=== PATIENT | male | born 1945 | race Caucasian/White ===

== ENCOUNTER 2019-07-14 23:04 | Inpatient (IN) | payer OTHER ==
[2019-07-15] MEDS ORDERED: SODIUM CHLORIDE IV ONE (00:19)
--- NOTE | 2019-07-15 00:21 | PDOC ---
History of Present Illness - General Chief Complaint: Blood Pressure Problem Stated Complaint: HYPOTENSION Time Seen by Provider: 07/15/19 00:15 - History of Present Illness Initial Comments: The pt is a 74M w/ a history of HTN, T2DM, seizures, bipolar disorder who presents from [facility] for evaluation of hypotension and WBC of 17.1. Pt is unable to give a history at this time. 07/15/19 01:06 Past History - Past Medical History Allergies/Adverse Reactions: Allergies Allergy/AdvReac Type Severity Reaction Status Date / Time fluphenazine enanthate Allergy Verified 07/14/19 23:58 [From Prolixin] fluphenazine HCl Allergy Verified 07/14/19 23:58 [From Prolixin] haloperidol [From Haldol] Allergy Verified 07/14/19 23:58 haloperidol lactate Allergy Verified 07/14/19 23:58 [From Haldol] Home Medications: Ambulatory Orders Albuterol Sulfate Inhaler - [Ventolin HFA Inhaler -] 2 inh PO Q4H PRN #1 inh Azithromycin [Zithromax Z-JOSIAH (5 DAYS) -] 250 mg PO ASDIR #6 tablet NS 09/05/14 Budesonide/Formeterol Fumarate [SYMBICORT 160/4.5mcg -] 1 inh PO BID 09/05/14 Chlorpromazine [Thorazine -] 50 mg PO BID 09/05/14 Docusate Sodium [Colace -] 100 mg PO BID 09/05/14 LamoTRIgine [LaMICtal] 25 mg PO DAILY 09/05/14 [place] Carbonate [Eskalith -] 300 mg PO BID 09/05/14 [place] Carbonate [Eskalith -] 450 mg PO DAILY 09/05/14 Multivitamins [Multivit ([facility] Formulary)] 1 tab PO DAILY 09/05/14 predniSONE [Deltasone -] 20 mg PO BID #10 tablet 09/05/14 traZODone HCL [Desyrel -] 50 mg PO HS 09/05/14 Cardiac Disorders: Yes (pt cant articulate what disorder) COPD: Yes (parkinson's) Diabetes: Yes Psychiatric Problems: Yes (bipolar) Seizures: Yes (epilitic seizures) - Psycho Social/Smoking Cessation Hx Smoking Status: Yes Smoking History: Former smoker Have you smoked in the past 12 months: No Number of Cigarettes Smoked Daily: 10 Information on smoking cessation initiated: No Hx Alcohol Use: No Drug/Substance Use Hx: No Review of Systems - Review of Systems Able to Perform ROS?: No (2/2 medical condition) Is the patient limited Azeri proficient: No *Physical Exam - Vital Signs Last Vital Signs Temp Pulse Resp BP Pulse Ox 114 H 16 86/57 L 96 07/14/19 23:15 07/14/19 23:15 07/14/19 23:15 07/14/19 23:15 - Physical Exam GENERAL: Awake, alert, and oriented to person, in no acute distress HEAD: No signs of trauma, normocephalic, atraumatic EYES: PERRLA, EOMI, sclera anicteric, conjunctiva clear ENT: Hearing grossly normal, nares patent, oropharynx clear without exudates. Dry mucosa LUNGS: RML/RLL crackles; L w/ diminished breath sounds HEART: Tachycardic rate and regular rhythm, normal S1 and S2, no murmurs appreciated, peripheral pulses normal and equal bilaterally ABDOMEN: Soft, no grimace to palpation, normoactive bowel sounds EXTREMITIES: Moves all extremities independently NEUROLOGICAL: Cranial nerves II through XII grossly intact SKIN: Warm, Dry 07/15/19 01:08 ED Treatment Course - LABORATORY CBC & Chemistry Diagram: 07/15/19 00:35 07/15/19 00:35 - RADIOLOGY Radiology Studies Ordered: Category Date Time Status CHEST X-RAY PORTABLE* [RAD] Stat Radiology 07/15/19 00:19 Ordered Medical Decision Making - Medical Decision Making The pt is a 74M w/ a history of HTN, T2DM, seizures, bipolar disorder who presents from [facility] for evaluation of hypotension and WBC of 17.1. Ddx: sepsis, PNA, UTI Sepsis order set initiated ED Course Sepsis labs sent IVF started Vanc/Zosyn given ECG w/ sinus tachycardia; HR 113; QTc 471; RBBB, no axis deviation, abn ecg 07/15/19 01:10 Leukocytosis to 16.2 No anemia DALTON noted Trop I neg LFTs wnl Lytes unremarkable CXR interpreted by ED staff; likely RLL PNA, no PNX 07/15/19 01:18 Aguirre placed for strict I/O, DALTON, immobilization UA/UCx sent Pt signed out to [facility] Admitting Pt currently receiving fluids 07/15/19 01:49 Discharge - Discharge Information Problems reviewed: Yes Clinical Impression/Diagnosis: DALTON (acute kidney injury) Sepsis Qualifiers: Sepsis type: sepsis due to unspecified organism Sepsis acute organ dysfunction status: unspecified Qualified Code(s): A41.9 - Sepsis, unspecified organism Pneumonia Qualifiers: Pneumonia type: due to unspecified organism Laterality: right Lung location: lower lobe of lung Qualified Code(s): J18.9 - Pneumonia, unspecified organism Hypotension Qualifiers: Hypotension type: unspecified hypotension type Qualified Code(s): I95.9 - Hypotension, unspecified Condition: Guarded - Admission Yes - Follow up/Referral - Patient Discharge Instructions - Post Discharge Activity
[2019-07-15 00:48] LABS: BASO % 0.7 % (0-2.0); EOS % 0.8 % (0-4.5); HEMATOCRIT 35.6 % (35.4-49); HEMOGLOBIN 11.7 GM/dL (11.7-16.9); LYMPH % 8.6 % (8-40); MCH 31.9 pg (25.7-33.7); MCHC 32.8 g/dl (32.0-35.9); MEAN CELL VOLUME 97.3 fl (80-96); MEAN PLT VOLUME 6.9 fl (7.5-11.1); MONO % 4.5 % (3.8-10.2); NEUT % 85.4 % (42.8-82.8); PLATELET COUNT 397 K/MM3 (134-434); RBC 3.65 M/mm3 (4.00-5.60); RDW 13.6 % (11.9-15.9); WHITE BLOOD COUNT 16.2 K/mm3 (4.0-10.0)
[2019-07-15 00:59] LABS: INR 1.09 (0.83-1.09); PROTHROMBIN TIME (PATIENT) 12.9 SEC (9.7-13.0)
[2019-07-15 01:04] LABS: VENOUS PH 7.39 (7.31-7.41)
[2019-07-15] MEDS ORDERED: PIPERACILLIN/TAZOB 4.5 GM 4.5 GM in DEXTROSE 5%-WATER 100 ML IVPB ONE (01:04)
[2019-07-15] MEDS ORDERED: VANCOMYCIN 1,000 MG in DEXTROSE 5%-WATER - 250 ML IVPB ONE (01:04)
[2019-07-15 01:06] LABS: VENOUS PO2 < 49 mmHg (28-48)
--- NOTE | 2019-07-15 01:07 | PDOC ---
Documentation entered by Danielle Monte SCRIBE, acting as scribe for Deanne Gold DO. Deanne Gold, : This documentation has been prepared by the mandiibtyrel, Danielle Monte SCRIBE, under my direction and personally reviewed by me in its entirety. I confirm that the documentation accurately reflects all work, treatment, procedures, and medical decision making performed by me. Attending Attestation - Resident Resident Name: [place] - ED Attending Attestation I have performed the following: I have examined & evaluated the patient, The case was reviewed & discussed with the resident, I agree w/resident's findings & plan, Exceptions are as noted - HPI HPI: 07/15/19 01:06 74yo male from [facility] for eval of low bp. Pt arrives aaox1- person. pt appears dehydrated, lethargic, generally weak, pale. Pt with a coarse cough and states intermittent dysuria. Pt unable to provide a complete hx - Physicial Exam PE: 07/15/19 01:04 Gen: aaox 1 heent: EOMI, dry cracked lips and tongue neck: supple heart: +s1s2 tachy lungs: coarse bs R side abd: soft, nd, +suprapubic ttp, no rebound or guarding ext: extended LE, wiggles toes, generally weak in all extremities - Medical Decision Making 07/15/19 00:54 I, Dr. Deanne Gold, DO, attest that this document has been prepared under my direction and personally reviewed by me in its entirety. I further attest, that it accurately reflects all work, treatment, procedures and medical decision -making performed by me. a/p: 74yo male from [facility] for eval of low bp -pt currently aaox1- person -pt with dry mm -coarse bs, dysuria -concern for sepsis from uti vs pna -will send labs -pt appears dehydrated -will start ivf hydration, cxr -pt will need admission for ivf hydration -abx ordered 07/15/19 01:07 wbc 17 at [facility] and 16 currently abx ordered 07/15/19 01:17 cxr shows R lower lobe infiltrate abx ordered 07/15/19 01:31 pt with serena will place piper catheter for strict i/o 07/15/19 01:41 case discussed with SYMPHONY MEASURING CLERK who accepts pt under Dr. Pickens Heart Score/ECG Review - ECG Intrepretation Comment:: 07/15/19 01:04 sinus tach at 113, rbbb, no acute st/t wave findings, abnl ekg
[2019-07-15 01:14] LABS: BILIRUBIN,TOTAL 0.3 mg/dL (0.2-1); BLOOD UREA NITROGEN 44.2 mg/dL (7-18); CALCIUM 8.8 mg/dL (8.5-10.1); CREATININE 2.6 mg/dL (0.55-1.3); POTASSIUM 4.3 mmol/L (3.5-5.1); TOT PROT 6.3 g/dl (6.4-8.2)
[2019-07-15] MEDS ORDERED: PIPERACILLIN/TAZOB 4.5 GM 4.5 GM/100 ML BAG IVPB ONE (01:55)
[2019-07-15] MEDS ORDERED: VANCOMYCIN 1 GRAM (PRE-DOCKED) 1,000 MG/250 ML BAG IVPB ONE (01:55)
[2019-07-15 01:58] LABS: EPI CELLS 3.8 /HPF (0-5/HPF); HYALINE CASTS 36 /lpf (0-8); PH,URINE 6.5 (5.0-8.0); URINE APPEARANCE CLOUDY; URINE BACTERIA 2.9 /hpf (NEGATIVE); URINE BILIRUBIN NEGATIVE (NEGATIVE); URINE COLOR YELLOW; URINE GLUCOSE (UA) NEGATIVE (NEGATIVE); URINE KETONE TRACE (NEGATIVE); URINE LEUK ESTERASE NEGATIVE (NEGATIVE); URINE NITRITE NEGATIVE (NEGATIVE); URINE PROTEIN 1+ (NEGATIVE); URINE RBC 1 /hpf (0-4); URINE WBC 1 /hpf (0-5)
[2019-07-15] MEDS ORDERED: ALBUTEROL SO4 8 GM HFA INHALER IH PRN (02:31)
--- NOTE | 2019-07-15 02:45 | HP ---
CHIEF COMPLAINT: presents from [facility] with weakness and hypotension PCP:Dr. Pickens HISTORY OF PRESENT ILLNESS: 74 year old male from [facility] who presented for evaluation of weakness. On arrival to the ER he was hypotensive and tachycardic, appeared dehydrated, lethargic, generally weak, and pale. Patient reported a cough and states intermittent dysuria. He denies stymotms of chest pain or shortness of breath. Patient is alert and oriented to self and place. ER course was notable for: (1)Leukocytosis consistent with a right lower lobe pneumonia (2)UA w/ negative nitrite, piper placed 07/15 (3)Acute Renal Insufficiency Recent Travel: unable to obtain PAST MEDICAL HISTORY: unable to obtain patient history due to patient medical condition PAST SURGICAL HISTORY: unable to obtain patient history due to patient medical condition Social History: Smoking:unable to obtain Alcohol:unable to obtain Drugs: unable to obtain Allergies fluphenazine enanthate [From Prolixin] Allergy (Verified 07/14/19 23:58) fluphenazine HCl [From Prolixin] Allergy (Verified 07/14/19 23:58) haloperidol [From Haldol] Allergy (Verified 07/14/19 23:58) haloperidol lactate [From Haldol] Allergy (Verified 07/14/19 23:58) HOME MEDICATIONS: Home Medications Medication Instructions Recorded Albuterol Sulfate Inhaler - 2 inh PO Q4H PRN #1 inh 09/05/14 [Ventolin HFA Inhaler -] Azithromycin [Zithromax Z-JOSIAH (5 250 mg PO ASDIR #6 tablet NS 09/05/14 DAYS) -] Budesonide/Formeterol Fumarate 1 inh PO BID 09/05/14 [SYMBICORT 160/4.5mcg -] Chlorpromazine [Thorazine -] 50 mg PO BID 09/05/14 Docusate Sodium [Colace -] 100 mg PO BID 09/05/14 LamoTRIgine [LaMICtal] 25 mg PO DAILY 09/05/14 [place] Carbonate [Eskalith -] 300 mg PO BID 09/05/14 [place] Carbonate [Eskalith -] 450 mg PO DAILY 09/05/14 Multivitamins [Multivit ([facility] 1 tab PO DAILY 09/05/14 Formulary)] predniSONE [Deltasone -] 20 mg PO BID #10 tablet 09/05/14 traZODone HCL [Desyrel -] 50 mg PO HS 09/05/14 REVIEW OF SYSTEMS CONSTITUTIONAL: Absent: fever, chills, diaphoresis, generalized weakness, malaise, loss of appetite, weight change HEENT: Absent: rhinorrhea, nasal congestion, throat pain, throat swelling, difficulty swallowing, mouth swelling, ear pain, eye pain, visual changes CARDIOVASCULAR: Absent: chest pain, syncope, palpitations, irregular heart rate, lightheadedness , peripheral edema RESPIRATORY: Absent: cough, shortness of breath, dyspnea with exertion, orthopnea, wheezing, stridor, hemoptysis GASTROINTESTINAL: Absent: abdominal pain, abdominal distension, nausea, vomiting, diarrhea, constipation, melena, hematochezia GENITOURINARY: Absent: dysuria, frequency, urgency, hesitancy, hematuria, flank pain, genital pain MUSCULOSKELETAL: Absent: myalgia, arthralgia, joint swelling, back pain, neck pain, +bedbound SKIN: Absent: rash, itching, pallor HEMATOLOGIC/IMMUNOLOGIC: Absent: easy bleeding, easy bruising, lymphadenopathy, frequent infections ENDOCRINE: Absent: unexplained weight gain, unexplained weight loss, heat intolerance, cold intolerance NEUROLOGIC: Absent: headache, focal weakness or paresthesias, dizziness, unsteady gait, seizure, mental status changes, bladder or bowel incontinence PSYCHIATRIC: Absent: anxiety, depression, suicidal or homicidal ideation, hallucinations. PHYSICAL EXAMINATION Vital Signs - 24 hr 07/14/19 07/15/19 23:15 00:36 Temperature 99.9 F H Pulse Rate 114 H Respiratory 16 Rate Blood Pressure 86/57 L O2 Sat by Pulse 96 Oximetry (%) GENERAL: awake, oriented to self and place answers questions appropriately HEAD: normal EYES: pupils equal round and reactive to light extraocular movements intact EARS, NOSE, THROAT: ears normal nares patent oropharynx clear without exudates NECK:no JVD LUNGS: breath sounds clear to auscultation bilaterally no wheezes no crackles no accessory muscle use. HEART: Regular rate and rhythm, normal S1 and S2 without murmur, rub or gallop. ABDOMEN: soft nontender not distended normoactive bowel sounds, MUSCULOSKELETAL: limited ROM due to weakness LOWER EXTREMITIES: 2+ pulses, warm, well-perfused NEUROLOGICAL: speech normal limited movement to bilateral lower extremities PSYCHIATRIC: cooperative. good eye contact SKIN: warm dry no rashes or lesions noted Laboratory Results - last 24 hr 07/15/19 07/15/19 07/15/19 00:35 00:35 00:35 WBC 16.2 H RBC 3.65 L Hgb 11.7 Hct 35.6 D MCV 97.3 H MCH 31.9 MCHC 32.8 RDW 13.6 Plt Count 397 D MPV 6.9 L D Absolute Neuts (auto) 13.8 H Neutrophils % 85.4 H D Lymphocytes % 8.6 D Monocytes % 4.5 Eosinophils % 0.8 D Basophils % 0.7 Nucleated RBC % 0 PT with INR 12.90 INR 1.09 PTT (Actin FS) 28.0 VBG pH POC VBG pCO2 POC VBG pO2 VBG HCO3 VBG O2 Sat ([place]) VBG Base Excess Sodium Potassium Chloride Carbon Dioxide Anion Gap BUN Creatinine Est GFR (CKD-EPI)AfAm Est GFR (CKD-EPI)NonAf Random Glucose Lactic Acid Calcium Total Bilirubin AST ALT Alkaline Phosphatase Troponin I < 0.02 Total Protein Albumin Urine Color Urine Appearance Urine pH Ur Specific [place] Urine Protein Urine Glucose (UA) Urine Ketones Urine Blood Urine Nitrite Urine Bilirubin Urine Urobilinogen Ur Leukocyte Esterase Urine WBC (Auto) Urine RBC (Auto) Urine Casts (Auto) U Epithel Cells (Auto) Urine Bacteria (Auto) 07/15/19 07/15/19 07/15/19 00:35 00:35 00:35 WBC RBC Hgb Hct MCV MCH MCHC RDW Plt Count MPV Absolute Neuts (auto) Neutrophils % Lymphocytes % Monocytes % Eosinophils % Basophils % Nucleated RBC % PT with INR INR PTT (Actin FS) VBG pH 7.39 POC VBG pCO2 43.0 POC VBG pO2 < 49 H VBG HCO3 25.6 VBG O2 Sat ([place]) 51.8 L VBG Base Excess 1.1 Sodium 135 L Potassium 4.3 Chloride 99 Carbon Dioxide 26 Anion Gap 11 BUN 44.2 H Creatinine 2.6 H Est GFR (CKD-EPI)AfAm 27.14 Est GFR (CKD-EPI)NonAf 23.42 Random Glucose 155 H Lactic Acid 2.9 H* Calcium 8.8 Total Bilirubin 0.3 AST 26 ALT 14 Alkaline Phosphatase 68 Troponin I Total Protein 6.3 L Albumin 3.0 L Urine Color Urine Appearance Urine pH Ur Specific [place] Urine Protein Urine Glucose (UA) Urine Ketones Urine Blood Urine Nitrite Urine Bilirubin Urine Urobilinogen Ur Leukocyte Esterase Urine WBC (Auto) Urine RBC (Auto) Urine Casts (Auto) U Epithel Cells (Auto) Urine Bacteria (Auto) 07/15/19 01:50 WBC RBC Hgb Hct MCV MCH MCHC RDW Plt Count MPV Absolute Neuts (auto) Neutrophils % Lymphocytes % Monocytes % Eosinophils % Basophils % Nucleated RBC % PT with INR INR PTT (Actin FS) VBG pH POC VBG pCO2 POC VBG pO2 VBG HCO3 VBG O2 Sat ([place]) VBG Base Excess Sodium Potassium Chloride Carbon Dioxide Anion Gap BUN Creatinine Est GFR (CKD-EPI)AfAm Est GFR (CKD-EPI)NonAf Random Glucose Lactic Acid Calcium Total Bilirubin AST ALT Alkaline Phosphatase Troponin I Total Protein Albumin Urine Color Yellow Urine Appearance Cloudy Urine pH 6.5 D Ur Specific [place] 1.022 Urine Protein 1+ H Urine Glucose (UA) Negative Urine Ketones Trace H Urine Blood Negative Urine Nitrite Negative Urine Bilirubin Negative Urine Urobilinogen 1.0 Ur Leukocyte Esterase Negative Urine WBC (Auto) 1 Urine RBC (Auto) 1 Urine Casts (Auto) 36 U Epithel Cells (Auto) 3.8 Urine Bacteria (Auto) 2.9 ASSESSMENT/PLAN: 74 year old male from [facility] who presented for evaluation of hypotension and tachycardia. He appeared dehydrated, lethargic, generally weak, and pale. #1 Leukocytosis currently afebrile CXR consistent with a right lower lobe pneumonia Started on IV Vancomycin and Pipercillin UA w/ negative nitrite, piper placed 06/2019 Infectious Diseases /Dr. Dumont consulted #2 Acute Renal Insufficiency Creatinine 2.6 Renal consulted- Dr. Castellanos Continue with IVF NS at 75cc/hr #3 Hypotension improved with IV fluids continue with IV fluids NS at 75cc/hr #4 Tachycardia secondary to acute medical illness denies chest pain or shortness of breath monitor on telemetry DVT lovenox for prophylaxsis FEN monitor electrolytes closely low sodium renal diet Visit type - Emergency Visit Emergency Visit: Yes ED Registration Date: 07/15/19 Care time: The patient presented to the Emergency Department on the above date and was hospitalized for further evaluation of their emergent condition. - New Patient This patient is new to me today: Yes Date on this admission: 07/15/19 - Critical Care Critical Care patient: No
[2019-07-15 03:25] LABS: PLATELET ESTIMATE ADEQUATE
[2019-07-15] MEDS: ENOXAPARIN NA (PORCINE) 30 MG/0.3 ML DISP.SYRIN SQ SCH ×2 (05:02→18:03)
[2019-07-15] MEDS: SODIUM CHLORIDE 0.45% 1,000 ML IV SCH ×2 (05:02→16:36)
[2019-07-15 06:05] LABS: HEMATOCRIT 31.7 % (35.4-49); HEMOGLOBIN 10.6 GM/dL (11.7-16.9); MCH 32.4 pg (25.7-33.7); MCHC 33.4 g/dl (32.0-35.9); MEAN CELL VOLUME 96.8 fl (80-96); MEAN PLT VOLUME 6.9 fl (7.5-11.1); PLATELET COUNT 366 K/MM3 (134-434); RBC 3.27 M/mm3 (4.00-5.60); RDW 13.8 % (11.9-15.9); WHITE BLOOD COUNT 12.8 K/mm3 (4.0-10.0)
[2019-07-15 06:19] LABS: BLOOD UREA NITROGEN 44.1 mg/dL (7-18); CALCIUM 7.9 mg/dL (8.5-10.1); POTASSIUM 4.1 mmol/L (3.5-5.1)
[2019-07-15] MEDS ORDERED: PIPERACILLIN/TAZOB 3.375 GM 3.375 GM in DEXTROSE 5%-WATER - 50 ML IVPB ONE (10:00)
[2019-07-15] MEDS ORDERED: PIPERACILLIN/TAZOB 3.375 GM 3.375 GM in DEXTROSE 5%-WATER - 50 ML IVPB SCH (10:00)
--- NOTE | 2019-07-15 10:25 | CONSULT ---
Consult Consult Specialty:: Nephrology Reason for Consultation:: DALTON - History of Present Illness Chief Complaint: sent in for hypotension History of Present Illness: Pt is a 74 year old male with pmhx of htn, dm, bipolar and epilepsy who was sent in from the [place] for fever and hypotension. He is awake but is a poot historian. he denies fevers or chills. He denies cough or shortness of breath. he was found to be in acute renal failure and I was called to evaluate him. he denies dysuria or hematuria. - History Source History Provided By: Medical Record - Past Medical History Cardio/Vascular: Yes: HTN Psych: Yes: Bipolar Endocrine: Yes: Diabetes Mellitus - Alcohol/Substance Use Hx Alcohol Use: No - Smoking History Smoking history: Former smoker Have you smoked in the past 12 months: No Aproximately how many cigarettes per day: 10 Home Medications - Allergies Allergies/Adverse Reactions: Allergies Allergy/AdvReac Type Severity Reaction Status Date / Time fluphenazine enanthate Allergy Verified 07/14/19 23:58 [From Prolixin] fluphenazine HCl Allergy Verified 07/14/19 23:58 [From Prolixin] haloperidol [From Haldol] Allergy Verified 07/14/19 23:58 haloperidol lactate Allergy Verified 07/14/19 23:58 [From Haldol] - Home Medications Home Medications: Ambulatory Orders Acetaminophen [Mapap] 2 tab PO BID PRN 07/15/19 Albuterol 0.083% Nebulizer Catrachita [Ventolin 0.083%] 1 neb NEB QID PRN 07/15/19 Aripiprazole [Abilify Maintena] 400 mg IM Q30D 07/15/19 Aspirin 81 mg PO DAILY 07/15/19 Benztropine Mesylate 1 mg PO DAILY 07/15/19 Carbidopa/Levodopa [Carbidopa-Levodopa 10-100 Tab] 1 each PO TID 07/15/19 Divalproex *ER* [Depakote *ER* -] 1,500 mg PO HS 07/15/19 Lamotrigine 100 mg PO DAILY 07/15/19 Lisinopril 5 mg PO DAILY 07/15/19 Metformin HCl [Glucophage] 1,000 mg PO BID 07/15/19 Quetiapine Fumarate [Seroquel -] 50 mg PO ASDIR 07/15/19 Quetiapine Fumarate [Seroquel -] 200 mg PO HS 07/15/19 Umeclidinium [place] [Incruse Ellipta] 62.5 mcg IH DAILY 07/15/19 Family Medical History Family History: Denies Review of Systems - Review of Systems Constitutional: reports: No Symptoms Eyes: reports: No Symptoms HENT: reports: No Symptoms Neck: reports: No Symptoms Cardiovascular: reports: No Symptoms Respiratory: reports: No Symptoms Gastrointestinal: reports: No Symptoms Genitourinary: reports: No Symptoms Musculoskeletal: reports: No Symptoms Integumentary: reports: No Symptoms Neurological: reports: No Symptoms Endocrine: reports: No Symptoms Hematology/Lymphatic: reports: No Symptoms Psychiatric: reports: No Symptoms Physical Exam Vital Signs: Vital Signs Temperature 99.9 F H 07/15/19 00:36 Pulse Rate 95 H 07/15/19 08:47 Respiratory Rate 26 H 07/15/19 07:22 Blood Pressure 115/60 07/15/19 07:22 O2 Sat by Pulse Oximetry (%) 94 L 07/15/19 08:47 Constitutional: Yes: Calm Eyes: Yes: Conjunctiva Clear HENT: Yes: Atraumatic Cardiovascular: Yes: S1, S2 Respiratory: Yes: CTA Bilaterally Gastrointestinal: Yes: Soft Renal/: Yes: WNL Musculoskeletal: Yes: WNL Edema: No Neurological: Yes: Oriented Psychiatric: Yes: Oriented Labs: CBC, BMP 07/15/19 05:48 07/15/19 05:48 Laboratory Tests 09/27/14 07/15/19 07/15/19 09:00 00:35 00:35 WBC 16.2 H Sodium Potassium Creatinine 1.2 D 2.6 H Urine Protein Urine Ketones 07/15/19 07/15/19 07/15/19 01:50 05:48 05:48 WBC 12.8 H Sodium 138 Potassium 4.1 Creatinine 2.0 H Urine Protein 1+ H Urine Ketones Trace H Imaging - Results Chest X-ray: Report Reviewed Problem List - Problems (1) DALTON (acute kidney injury) Code(s): N17.9 - ACUTE KIDNEY FAILURE, UNSPECIFIED (2) Altered mental status Code(s): R41.82 - ALTERED MENTAL STATUS, UNSPECIFIED (3) Hypotension Code(s): I95.9 - HYPOTENSION, UNSPECIFIED Qualifiers: Hypotension type: unspecified hypotension type Qualified Code(s): I95.9 - Hypotension, unspecified Assessment/Plan Current Medications Generic Name Dose Route Start Last Admin Trade Name Freq PRN Reason Stop Dose Admin Albuterol Sulfate 2 puff 07/15/19 02:31 Ventolin Hfa Inhaler - IH Q4H PRN SHORT OF BREATH/WHEEZING Budesonide/Formoterol Fumarate 1 puff 07/15/19 10:00 Symbicort 160/4.5mcg - IH BID TITA Chlorpromazine HCl 50 mg 07/15/19 10:00 Thorazine - PO BID TITA Docusate Sodium 100 mg 07/15/19 10:00 Colace - PO BID TITA Enoxaparin Sodium 30 mg 07/15/19 03:15 07/15/19 05:02 Lovenox - SQ 30 mg Q12H TITA Administration Sodium Chloride 1,000 mls @ 75 mls/hr 07/15/19 02:30 07/15/19 05:02 1/2 Normal Saline IV 75 mls/hr ASDIR TITA Administration Piperacillin Sod/Tazobactam 50 mls @ 100 mls/hr 07/15/19 10:00 Sod 3.375 gm/ Dextrose IVPB BID TITA Protocol Piperacillin Sod/Tazobactam 50 mls @ 100 mls/hr 07/15/19 10:00 Sod 3.375 gm/ Dextrose IVPB 07/15/19 10:29 ONCE ONE Protocol Lamotrigine 25 mg 07/15/19 10:00 Lamictal - PO DAILY [facility] Carbonate 300 mg 07/15/19 10:00 Eskalith - PO BID [facility] Multivitamins/Minerals/Vitamin C 1 tab 07/15/19 10:00 Tab-A-Vit - PO DAILY [facility] Prednisone 20 mg 07/15/19 10:00 Deltasone - PO BID [facility] Trazodone HCl 50 mg 07/15/19 22:00 Desyrel - PO HS [facility] Impression 1. DALTON 2. DM 3. HTN 4. hypotension 5. bipolar 6. lactic acidosis 7. epilepsy Plan - renal function is improving - hold veronica - hold metformin - cont fliuds - monitor dry ice maker closely - repeat lactic acid in am - wbc is improved
[2019-07-15] MEDS: DOCUSATE SODIUM 100 MG CAPSULE (FP) PO SCH ×2 (10:29→23:50)
[2019-07-15] MEDS: lamoTRIgine 25 MG TABLET PO SCH (10:30)
[2019-07-15] MEDS: predniSONE 20 MG TABLET (UD) PO SCH ×2 (10:30→23:50)
[2019-07-15] MEDS: MULTIVITAMINS (DAILY MVI) TABLET (FP) PO SCH (10:30)
[2019-07-15] MEDS: LITHIUM CARBONATE 300 MG CAPSULE (FP) PO SCH ×2 (10:30→23:50)
--- NOTE | 2019-07-15 11:36 | PN ---
Progress Note, Physician Chief Complaint: Hypotension Weakness Leukocytosis DALTON History of Present Illness: Previous notes and events reviewed awake and alert, confused NAD leukocytosis low grade fever UC and BC pending - Current Medication List Current Medications: Active Medications Albuterol Sulfate (Ventolin Hfa Inhaler -) 2 puff IH Q4H PRN PRN Reason: SHORT OF BREATH/WHEEZING Budesonide/Formoterol Fumarate (Symbicort 160/4.5mcg -) 1 puff IH BID [facility] Chlorpromazine HCl (Thorazine -) 50 mg PO BID [facility] Last Admin: 07/15/19 10:30 Dose: 50 mg Docusate Sodium (Colace -) 100 mg PO BID [facility] Last Admin: 07/15/19 10:29 Dose: 100 mg Enoxaparin Sodium (Lovenox -) 30 mg SQ Q12H [facility] Last Admin: 07/15/19 05:02 Dose: 30 mg Sodium Chloride (1/2 Normal Saline) 1,000 mls @ 75 mls/hr IV ASDIR [facility] Last Admin: 07/15/19 05:02 Dose: 75 mls/hr Piperacillin Sod/Tazobactam (Sod 3.375 gm/ Dextrose) 50 mls @ 100 mls/hr IVPB BID [facility]; Protocol Lamotrigine (Lamictal -) 25 mg PO DAILY [facility] Last Admin: 07/15/19 10:30 Dose: 25 mg [place] Carbonate (Eskalith -) 300 mg PO BID [facility] Last Admin: 07/15/19 10:30 Dose: 300 mg Multivitamins/Minerals/Vitamin C (Tab-A-Vit -) 1 tab PO DAILY [facility] Last Admin: 07/15/19 10:30 Dose: 1 tab Prednisone (Deltasone -) 20 mg PO BID [facility] Last Admin: 07/15/19 10:30 Dose: 20 mg Trazodone HCl (Desyrel -) 50 mg PO [facility] - Objective Vital Signs: Vital Signs Temperature 99.9 F H 07/15/19 00:36 Pulse Rate 95 H 07/15/19 08:47 Respiratory Rate 26 H 07/15/19 07:22 Blood Pressure 115/60 07/15/19 07:22 O2 Sat by Pulse Oximetry (%) 94 L 07/15/19 08:47 Constitutional: Yes: No Distress, Calm Eyes: Yes: Conjunctiva Clear HENT: Yes: Atraumatic Cardiovascular: Yes: Regular Rate and Rhythm Respiratory: Yes: Regular, Diminished, On Nasal O2 Gastrointestinal: Yes: Normal Bowel Sounds, Soft Genitourinary: Yes: Aguirre Present Musculoskeletal: Yes: Muscle Weakness Extremities: Yes: WNL Edema: No Neurological: Yes: Alert, Oriented (to person and place), Confusion Psychiatric: Yes: Alert, Oriented (to person, place) Labs: CBC, BMP 07/15/19 05:48 07/15/19 05:48 INR, PTT INR 1.09 (0.83-1.09) 07/15/19 00:35 Problem List - Problems (1) Altered mental status Assessment/Plan: -initially lethargic on arrival to ER, has improved -trouble following commands -Neurology consult -Head CT scan Code(s): R41.82 - ALTERED MENTAL STATUS, UNSPECIFIED (2) DALTON (acute kidney injury) Assessment/Plan: -Renal consult -BUN/Cr 44.1/2.0 -monitor renal function Code(s): N17.9 - ACUTE KIDNEY FAILURE, UNSPECIFIED (3) Hypotension Assessment/Plan: -monitor BP -IV hydration Code(s): I95.9 - HYPOTENSION, UNSPECIFIED Qualifiers: Hypotension type: unspecified hypotension type Qualified Code(s): I95.9 - Hypotension, unspecified (4) Sepsis Assessment/Plan: -ID consult -CXR shows no acute pathology -BC and UC pending -UA shows neg Leuks -LA 2.4 -leukocytosis -low grade fever -received Vancomycin and Zosyn in ER Code(s): A41.9 - SEPSIS, UNSPECIFIED ORGANISM Qualifiers: Sepsis type: sepsis due to unspecified organism Sepsis acute organ dysfunction status: unspecified Qualified Code(s): A41.9 - Sepsis, unspecified organism (5) History of COPD Assessment/Plan: -Pulm consult -O2 via NC -keep SpO2 >90% -Symbicort Code(s): Z87.09 - PERSONAL HISTORY OF OTHER DISEASES OF THE RESPIRATORY SYSTEM (6) Weakness Assessment/Plan: -Fall risk precautions -PT Code(s): R53.1 - WEAKNESS
[2019-07-15] MEDS ORDERED: PIPERACILLIN/TAZOB 3.375 GM 3.375 GM/50 ML BAG IVPB ONE (11:39)
--- NOTE | 2019-07-15 13:59 | EKG ---
Test Reason : Blood Pressure : / mmHG Vent. Rate : 113 BPM Atrial Rate : 113 BPM P-R Int : 132 ms QRS Dur : 110 ms QT Int : 344 ms P-R-T Axes : 045 096 043 degrees QTc Int : 471 ms SINUS TACHYCARDIA WITH OCCASIONAL PREMATURE VENTRICULAR COMPLEXES RIGHT BUNDLE BRANCH BLOCK ABNORMAL ECG WHEN COMPARED WITH ECG OF 04-JUN-2018 13:52, PREMATURE VENTRICULAR COMPLEXES ARE NOW PRESENT RIGHT BUNDLE BRANCH BLOCK IS NOW PRESENT Confirmed by CARL REARDON MD ([id number]) on 07/15/2019 1:58:35 PM Referred By: Confirmed By:CARL REARDON MD
--- NOTE | 2019-07-15 14:20 | PN ---
Progress Note (short form) - Note Progress Note: PULMONARY CONSULTATION DICTATED IMP HYPOTENSION,COUGH,CONGESTION LIKELY PNEUMONIA ACUTE RENAL FAILURE ALTERED MENTAL STATUS ELEVATED LACTATE LEVEL ANEMIA PLAN IV ABX INHALED BRONCHODILATORS IVF CULTURES CHEST CT MONITOR LYTES,RENAL FUNCTION O2 NEEDED TREND LACTATE DR ROACH Problem List - Problems (1) Lactic acid blood increased Code(s): R79.89 - OTHER SPECIFIED ABNORMAL FINDINGS OF BLOOD CHEMISTRY (2) DALTON (acute kidney injury) Code(s): N17.9 - ACUTE KIDNEY FAILURE, UNSPECIFIED (3) Altered mental status Code(s): R41.82 - ALTERED MENTAL STATUS, UNSPECIFIED (4) Hypotension Code(s): I95.9 - HYPOTENSION, UNSPECIFIED Qualifiers: Hypotension type: unspecified hypotension type Qualified Code(s): I95.9 - Hypotension, unspecified (5) Pneumonia Code(s): J18.9 - PNEUMONIA, UNSPECIFIED ORGANISM Qualifiers: Pneumonia type: due to unspecified organism Laterality: right Lung location: lower lobe of lung Qualified Code(s): J18.9 - Pneumonia, unspecified organism (6) Sepsis Code(s): A41.9 - SEPSIS, UNSPECIFIED ORGANISM Qualifiers: Sepsis type: sepsis due to unspecified organism Sepsis acute organ dysfunction status: unspecified Qualified Code(s): A41.9 - Sepsis, unspecified organism (7) History of COPD Code(s): Z87.09 - PERSONAL HISTORY OF OTHER DISEASES OF THE RESPIRATORY SYSTEM
[2019-07-15] MEDS: BUDESONIDE/FORMETEROL FUMARATE 160/4.5 mcg INHALER IH SCH ×2 (16:37→23:50)
--- NOTE | 2019-07-15 16:59 | PN ---
Progress Note (short form) - Note Progress Note: ID CONSULT DICTATED 74 Y/O MALE WITH PARKINSONISM ADMITTED FROM [facility] WITH GENERALIZED WEAKNESS, HYPOTENSION, DYSURIA, COUGH. NOTED TO HAVE WBC 17K R/O NH ACQUIRED PNEUMONIA R/O UTI/ SEPSIS SECONDARY TO UTI LACTIC ACIDOSIS AZOTEMIA AWAIT C/S EMPIRIC CEFTRIAXONE
[2019-07-15] MEDS ORDERED: DEXTROSE 5%-WATER 100 ML IVPB ONE (17:15)
--- NOTE | 2019-07-15 17:16 | CON.NEURO ---
Consult Consult Specialty:: Kell Referred by:: PCP - History of Present Illness History of Present Illness: This is a 74-year-old right-handed man with multiple medical problem including coronary artery disease osteoarthritis psycho affective disorder On lithium Questionable seizure disorder Presented to the hospital with the chief complaint of feeling weakness. Neurology was called to evaluate the patient patient was actually recently discharged from [facility] I diagnosed the patient withParkinson' s disease based on clinical examination consistent with tremors and cogwheeling and rigidity. Patient was started on carbidopa which the patient is not taking. Patient was diagnosed with dehydration was admitted to the floor for further treatment and management. Patient was seen on telemetry. - History Source History Provided By: Medical Record Limitations to Obtaining History: Clinical Condition - Past Medical History Cardio/Vascular: Yes: HTN Psych: Yes: Bipolar Endocrine: Yes: Diabetes Mellitus - Alcohol/Substance Use Hx Alcohol Use: No - Smoking History Smoking history: Former smoker Have you smoked in the past 12 months: No Aproximately how many cigarettes per day: 10 Home Medications - Allergies Allergies/Adverse Reactions: Allergies Allergy/AdvReac Type Severity Reaction Status Date / Time fluphenazine enanthate Allergy Verified 07/14/19 23:58 [From Prolixin] fluphenazine HCl Allergy Verified 07/14/19 23:58 [From Prolixin] haloperidol [From Haldol] Allergy Verified 07/14/19 23:58 haloperidol lactate Allergy Verified 07/14/19 23:58 [From Haldol] - Home Medications Home Medications: Ambulatory Orders Acetaminophen [Mapap] 2 tab PO BID PRN 07/15/19 Albuterol 0.083% Nebulizer Catrachita [Ventolin 0.083%] 1 neb NEB QID PRN 07/15/19 Aripiprazole [Abilify Maintena] 400 mg IM Q30D 07/15/19 Aspirin 81 mg PO DAILY 07/15/19 Benztropine Mesylate 1 mg PO DAILY 07/15/19 Carbidopa/Levodopa [Carbidopa-Levodopa 10-100 Tab] 1 each PO TID 07/15/19 Divalproex *ER* [Depakote *ER* -] 1,500 mg PO HS 07/15/19 Lamotrigine 100 mg PO DAILY 07/15/19 Lisinopril 5 mg PO DAILY 07/15/19 Metformin HCl [Glucophage] 1,000 mg PO BID 07/15/19 Quetiapine Fumarate [Seroquel -] 50 mg PO ASDIR 07/15/19 Quetiapine Fumarate [Seroquel -] 200 mg PO HS 07/15/19 Umeclidinium [place] [Incruse Ellipta] 62.5 mcg IH DAILY 07/15/19 Family Medical History Family History: Unable to Obtain Review of Systems - Review of Systems Constitutional: reports: No Symptoms Eyes: reports: No Symptoms Neurological: reports: Dizziness, Headache, Incoordination, Parasthesia Physical Exam-Neuro Vital Signs: Vital Signs Temperature 98.8 F 07/15/19 14:29 Pulse Rate 110 H 07/15/19 14:29 Respiratory Rate 18 07/15/19 14:29 Blood Pressure 112/58 L 07/15/19 14:29 O2 Sat by Pulse Oximetry (%) 99 07/15/19 11:57 Constitutional: Yes: Well Nourished Neck: Yes: WNL Cardiovascular: Yes: WNL Labs: CBC, BMP 07/15/19 05:48 07/15/19 05:48 INR, PTT INR 1.09 (0.83-1.09) 07/15/19 00:35 - Neuro Exam Level Of Consciousness: Yes: Oriented to Person, Oriented to Place Eyes: Yes: PERRLA Speech: WNL Dominant Hand: Right Cranial Nerves II-XII Intact: Yes Gag: Present DTR's: 1+ Left Bicep, 1+ Right Bicep, 1+ Left Tricep, 1+ Right Tricep Response to light touch: Abnormal Response to pain prick: Abnormal Movement Disorders: Spasticity, Tremors Motor Strength: 3/5: Left Arm, Right Arm, Left Leg, Right Leg Problem List - Problems (1) Altered mental status Assessment/Plan: Had a recent admission for similar problem at [facility] Extensive workup did not reveal any evidence of stroke 1. Toxic metabolic encephalopathy 2. Seizure disorder 3. Parkinson's disease Plan 1. Neuro checks every 1 hour. 2. Seizure precautions. 3. Check Depakote level. 4. Check Lamictal level. 5. Increased carbidopa to 25/103 times daily. 6. DVT prophylaxis. 7. Physical therapy at bedside. Thank you very much for allowing me to be part of this patient's neurological care Kiko Castorena M.D. Code(s): R41.82 - ALTERED MENTAL STATUS, UNSPECIFIED
[2019-07-15] MEDS: CEFTRIAXONE 2 GM in DEXTROSE 5%-WATER 100 ML IVPB SCH (17:27)
[2019-07-15] MEDS ORDERED: ENOXAPARIN NA (PORCINE) 30 MG/0.3 ML DISP.SYRIN SQ SCH (18:00)
--- NOTE | 2019-07-15 18:56 | CONS ---
DATE OF CONSULTATION: 07/15/2019 REFERRING PHYSICIAN: Noah Pickens M.D. HISTORY OF PRESENT ILLNESS: History is obtained from medical records. Patient is a poor historian. The patient is a 74-year-old male, resident of [facility] transferred to [facility] secondary to hypotension, tachycardia, congestion, and lethargy. Patient apparently at the longterm had cough and intermittent dysuria. Apparently denied any complaints of shortness of breath. In the ER, he was noted to have leukocytosis and chest x-ray, possible right lower lobe infiltrate. UA was negative for nitrates. He is also noted to have elevated BUN and creatinine, which is increased from previous labs performed in 2017. Patient was admitted, started on IV fluids and antibiotic therapy. Patient states he smokes but is not sure how much. There is no further history available at this time. PAST MEDICAL HISTORY: Unavailable. CURRENT MEDICATIONS: Include prednisone Symbicort, piperacillin, Lovenox, Lamictal, Desyrel, Eskalith, Thorazine, albuterol, Colace, Protonix, normal saline IV. PHYSICAL EXAMINATION: General: The patient is an elderly male, awake, alert, confused, he is afebrile. Vital Signs: Blood pressure 126/58, respiratory rate 20, O2 saturation is 99% on 3 L. HEENT: Normocephalic, atraumatic. Neck: Supple. Heart: Regular S1, S2. Chest: A few rhonchi bilaterally. Abdomen: Soft, bowel sounds positive. Extremities: No cyanosis, edema. LABORATORY: WBC is 12.8, hemoglobin 10.6, hematocrit 31.7 with a platelet count of 366,000. Venous blood gas: 7.39, pCO2 of 43, pO2 of less than 49. BUN 44, creatinine 2.0, lactate level is 2.9. Chest x-ray: Questionable denise infiltrates in right lower lobe. IMPRESSION: 1. Hypotension, cough, congestion,r/o pneumonia. 2. Acute renal failure. 3. Altered mental status likely toxic metabolic. 4. Elevated lactate level. 5. Anemia. PLAN: IV antibiotics. IV fluid. Obtain cultures. Chest CT. Monitor electrolytes, renal function. Supplemental O2 as needed. Trend lactate level. NIGEL ROACH M.D. RODY/[id number] MTDD
--- NOTE | 2019-07-15 19:51 | CONS ---
DATE OF CONSULTATION: DATE OF DICTATION: 07/15/2019 INFECTIOUS DISEASE CONSULTATION HISTORY OF PRESENT ILLNESS: The patient is a 74-year-old male with a history of Parkinsonism evaluated for sepsis. History was obtained from the chart, as he cannot give a history. Patient is somnolent and is not able to offer any additional history. At the halfway, he was noted to have altered mental status, lethargy, generalized weakness. He was found to be hypotensive. According to the notes, he had also complained of some dysuria and was noted to have cough. He was evaluated in the emergency room where the patient was hypotensive and tachycardic. He was noted to be dehydrated with elevated white blood cell count and elevated serum creatinine. Chest x-ray showed possible right middle lobe infiltrate. CAT scan of the chest was performed and is pending. Cultures were obtained. He was empirically treated with vancomycin and Zosyn. He is unable to give any additional history. No reports of sputum production, hemoptysis, seizure activity. No known ill contacts. No recent hospitalizations. His vaccination status cannot be verified at this time. PAST MEDICAL HISTORY: Positive for Parkinsonism, seizure disorder, diabetes mellitus, COPD, bipolar disorder, hypertension, hyperlipidemia. ALLERGIES: FLUPHENAZINE, HALDOL. SOCIAL HISTORY: He is a halfway resident, former smoker. SYSTEMS REVIEW: Neurologic: Positive for Parkinsonism and altered mentation. Cardiac: Positive for tachycardia. Respiratory: As per HPI. Gastrointestinal: Negative vomiting or diarrhea. Genitourinary: Positive for urinary tract infection. LABORATORY DATA: White count on admission 16.2 presently 35.6, platelets 397. Creatinine 2.0. Urinalysis 1 white cell. CAN scan is pending. PHYSICAL EXAMINATION: General: On physical examination, he is somnolent but arousable. He drifts back to sleep, unable to maintain a conversation. His breathing is nonlabored on nasal cannula O2. No cough is noted. Vital signs: Temperature 98.8, T-max 99.9, blood pressure 112/58, pulse 110 regular, respirations 18 per minute. HEENT: Sclerae anicteric. Cardiovascular: Heart sounds S1, S2. Lungs: Poor inspiratory effort, grossly clear. Abdomen: Soft, no tenderness elicited. Extremities: 1+ edema. There is a Aguirre catheter in place with clear urine. IMPRESSION: A 74-year-old male with a history of Parkinsonism admitted from the halfway with generalized weakness, hypotension, dysuria, and cough. 1. Rule out halfway acquired pneumonia. 2. Rule out urinary tract infection/sepsis secondary to urinary tract infection. 3. Lactic acidosis. 4. Azotemia. 5. Parkinsonism. Await sepsis workup and CAT scan reading, empiric antibiotic coverage for possible halfway acquired pulmonary and urinary tract pathogens with ceftriaxone, aspiration precautions, thank you for the kind referral. CARL GARCIA M.D. [id number]
[2019-07-15] MEDS ORDERED: PT OWN MED DRAWER 7, Y5N ONE (23:17)
[2019-07-15] MEDS ORDERED: chlorproMAZINE HCL 100 MG TABLET PO SCH (23:22)
[2019-07-15] MEDS: traZODone HCL 50 MG TABLET (FP) PO SCH (23:50)
[2019-07-16] MEDS: SODIUM CHLORIDE 0.45% 1,000 ML IV SCH (03:02)
[2019-07-16 06:41] LABS: ALBUMIN 2.9 g/dl (3.4-5.0); BILIRUBIN,TOTAL 0.4 mg/dL (0.2-1); BLOOD UREA NITROGEN 24.5 mg/dL (7-18); CALCIUM 9.1 mg/dL (8.5-10.1); CREATININE 0.9 mg/dL (0.55-1.3); POTASSIUM 4.8 mmol/L (3.5-5.1); TOT PROT 6.6 g/dl (6.4-8.2)
[2019-07-16] MEDS ORDERED: PT OWN MED DRAWER 7, Y5N ONE ×2 (08:47→22:57)
[2019-07-16] MEDS ORDERED: DEXTROSE 5%-WATER 100 ML IVPB ONE (08:47)
[2019-07-16] MEDS: PANTOPRAZOLE 40 MG TABLET (FP) PO SCH (09:00)
[2019-07-16] MEDS: LITHIUM CARBONATE 300 MG CAPSULE (FP) PO SCH ×2 (09:00→22:39)
[2019-07-16] MEDS: DOCUSATE SODIUM 100 MG CAPSULE (FP) PO SCH ×2 (09:00→22:39)
[2019-07-16] MEDS: predniSONE 20 MG TABLET (UD) PO SCH ×2 (09:00→22:39)
[2019-07-16] MEDS: ENOXAPARIN NA (PORCINE) 30 MG/0.3 ML DISP.SYRIN SQ SCH (09:01)
[2019-07-16] MEDS: lamoTRIgine 25 MG TABLET PO SCH (09:01)
[2019-07-16] MEDS: MULTIVITAMINS (DAILY MVI) TABLET (FP) PO SCH (09:02)
[2019-07-16] MEDS: chlorproMAZINE HCL 25 MG TABLET PO SCH ×2 (09:02→22:39)
[2019-07-16] MEDS: BUDESONIDE/FORMETEROL FUMARATE 160/4.5 mcg INHALER IH SCH ×2 (09:03→22:40)
[2019-07-16] MEDS: CEFTRIAXONE 2 GM in DEXTROSE 5%-WATER 100 ML IVPB SCH (09:06)
--- NOTE | 2019-07-16 11:09 | PN ---
Progress Note, Physician Chief Complaint: AWAKE MORE ALERT - Current Medication List Current Medications: Active Medications Albuterol Sulfate (Ventolin Hfa Inhaler -) 2 puff IH Q4H PRN PRN Reason: SHORT OF BREATH/WHEEZING Budesonide/Formoterol Fumarate (Symbicort 160/4.5mcg -) 1 puff IH BID [facility] Last Admin: 07/16/19 09:03 Dose: 1 puff Chlorpromazine HCl (Thorazine -) 50 mg PO BID [facility] Last Admin: 07/16/19 09:02 Dose: 50 mg Docusate Sodium (Colace -) 100 mg PO BID [facility] Last Admin: 07/16/19 09:00 Dose: 100 mg Enoxaparin Sodium (Lovenox -) 40 mg SQ DAILY [facility] Last Admin: 07/16/19 09:01 Dose: 40 mg Sodium Chloride (1/2 Normal Saline) 1,000 mls @ 75 mls/hr IV ASDIR [facility] Last Admin: 07/16/19 03:02 Dose: 75 mls/hr Ceftriaxone Sodium 2 gm/ (Dextrose) 100 mls @ 200 mls/hr IVPB DAILY [facility]; Protocol Last Admin: 07/16/19 09:06 Dose: 200 mls/hr Lamotrigine (Lamictal -) 25 mg PO DAILY [facility] Last Admin: 07/16/19 09:01 Dose: 25 mg [place] Carbonate (Eskalith -) 300 mg PO BID [facility] Last Admin: 07/16/19 09:00 Dose: 300 mg Multivitamins/Minerals/Vitamin C (Tab-A-Vit -) 1 tab PO DAILY [facility] Last Admin: 07/16/19 09:02 Dose: 1 tab Pantoprazole Sodium (Protonix -) 40 mg PO DAILY [facility] Last Admin: 07/16/19 09:00 Dose: 40 mg Prednisone (Deltasone -) 20 mg PO BID [facility] Last Admin: 07/16/19 09:00 Dose: 20 mg Trazodone HCl (Desyrel -) 50 mg PO HS [facility] Last Admin: 07/15/19 23:50 Dose: 50 mg - Objective Vital Signs: Vital Signs Temperature 98.4 F 07/16/19 10:00 Pulse Rate 102 H 07/16/19 10:00 Respiratory Rate 18 07/16/19 10:00 Blood Pressure 154/86 07/16/19 10:00 O2 Sat by Pulse Oximetry (%) 94 L 07/16/19 09:00 Constitutional: Yes: Mild Distress Cardiovascular: Yes: Regular Rate and Rhythm Respiratory: Yes: WNL Gastrointestinal: Yes: Soft Genitourinary: Yes: Lane Present Musculoskeletal: Yes: Muscle Weakness Edema: No Integumentary: Yes: WNL Wound/Incision: Yes: Clean/Dry Neurological: Yes: Alert, Pre-Existing Deficit ...Motor Strength: LLE, RLE Psychiatric: Yes: Other Labs: CBC, BMP 07/15/19 05:48 07/16/19 05:37 INR, PTT INR 1.09 (0.83-1.09) 07/15/19 00:35 Problem List - Problems (1) DALTON (acute kidney injury) Code(s): N17.9 - ACUTE KIDNEY FAILURE, UNSPECIFIED (2) Altered mental status Code(s): R41.82 - ALTERED MENTAL STATUS, UNSPECIFIED (3) Hypotension Code(s): I95.9 - HYPOTENSION, UNSPECIFIED Qualifiers: Hypotension type: unspecified hypotension type Qualified Code(s): I95.9 - Hypotension, unspecified (4) Lactic acid blood increased Code(s): R79.89 - OTHER SPECIFIED ABNORMAL FINDINGS OF BLOOD CHEMISTRY (5) Pneumonia Code(s): J18.9 - PNEUMONIA, UNSPECIFIED ORGANISM Qualifiers: Pneumonia type: due to unspecified organism Laterality: right Lung location: lower lobe of lung Qualified Code(s): J18.9 - Pneumonia, unspecified organism (6) Sepsis Code(s): A41.9 - SEPSIS, UNSPECIFIED ORGANISM Qualifiers: Sepsis type: sepsis due to unspecified organism Sepsis acute organ dysfunction status: unspecified Qualified Code(s): A41.9 - Sepsis, unspecified organism (7) Weakness Code(s): R53.1 - WEAKNESS (8) History of COPD Code(s): Z87.09 - PERSONAL HISTORY OF OTHER DISEASES OF THE RESPIRATORY SYSTEM Assessment/Plan IV ABX PER ID CHECK CULTURES PT [address] FOR NOW CAN DC WHEN SYMPTOMS IMPROVE COPD ON NEBS
--- NOTE | 2019-07-16 11:39 | PN ---
Progress Note, Physician History of Present Illness: pulmonary awake alert,less congested - Current Medication List Current Medications: Active Medications Albuterol Sulfate (Ventolin Hfa Inhaler -) 2 puff IH Q4H PRN PRN Reason: SHORT OF BREATH/WHEEZING Budesonide/Formoterol Fumarate (Symbicort 160/4.5mcg -) 1 puff IH BID [facility] Last Admin: 07/16/19 09:03 Dose: 1 puff Chlorpromazine HCl (Thorazine -) 50 mg PO BID [facility] Last Admin: 07/16/19 09:02 Dose: 50 mg Docusate Sodium (Colace -) 100 mg PO BID [facility] Last Admin: 07/16/19 09:00 Dose: 100 mg Enoxaparin Sodium (Lovenox -) 40 mg SQ DAILY [facility] Last Admin: 07/16/19 09:01 Dose: 40 mg Sodium Chloride (1/2 Normal Saline) 1,000 mls @ 75 mls/hr IV ASDIR [facility] Last Admin: 07/16/19 03:02 Dose: 75 mls/hr Ceftriaxone Sodium 2 gm/ (Dextrose) 100 mls @ 200 mls/hr IVPB DAILY [facility]; Protocol Last Admin: 07/16/19 09:06 Dose: 200 mls/hr Lamotrigine (Lamictal -) 25 mg PO DAILY [facility] Last Admin: 07/16/19 09:01 Dose: 25 mg [place] Carbonate (Eskalith -) 300 mg PO BID [facility] Last Admin: 07/16/19 09:00 Dose: 300 mg Multivitamins/Minerals/Vitamin C (Tab-A-Vit -) 1 tab PO DAILY [facility] Last Admin: 07/16/19 09:02 Dose: 1 tab Pantoprazole Sodium (Protonix -) 40 mg PO DAILY [facility] Last Admin: 07/16/19 09:00 Dose: 40 mg Prednisone (Deltasone -) 20 mg PO BID [facility] Last Admin: 07/16/19 09:00 Dose: 20 mg Trazodone HCl (Desyrel -) 50 mg PO HS [facility] Last Admin: 07/15/19 23:50 Dose: 50 mg - Objective Vital Signs: Vital Signs Temperature 98.4 F 07/16/19 10:00 Pulse Rate 102 H 07/16/19 10:00 Respiratory Rate 18 07/16/19 10:00 Blood Pressure 154/86 07/16/19 10:00 O2 Sat by Pulse Oximetry (%) 94 L 07/16/19 09:00 Constitutional: Yes: Well Nourished, Calm Eyes: Yes: WNL HENT: Yes: WNL Neck: Yes: WNL Cardiovascular: Yes: Regular Rate and Rhythm, S1, S2 Respiratory: Yes: Rhonchi (scattered denise rhonchi) Gastrointestinal: Yes: Normal Bowel Sounds, Soft Extremities: Yes: WNL Edema: No Labs: CBC, BMP 07/15/19 05:48 07/16/19 05:37 INR, PTT INR 1.09 (0.83-1.09) 07/15/19 00:35 Problem List - Problems (1) Lactic acid blood increased Code(s): R79.89 - OTHER SPECIFIED ABNORMAL FINDINGS OF BLOOD CHEMISTRY (2) DALTON (acute kidney injury) Code(s): N17.9 - ACUTE KIDNEY FAILURE, UNSPECIFIED (3) Altered mental status Code(s): R41.82 - ALTERED MENTAL STATUS, UNSPECIFIED (4) Hypotension Code(s): I95.9 - HYPOTENSION, UNSPECIFIED Qualifiers: Hypotension type: unspecified hypotension type Qualified Code(s): I95.9 - Hypotension, unspecified (5) Pneumonia Code(s): J18.9 - PNEUMONIA, UNSPECIFIED ORGANISM Qualifiers: Pneumonia type: due to unspecified organism Laterality: right Lung location: lower lobe of lung Qualified Code(s): J18.9 - Pneumonia, unspecified organism (6) Sepsis Code(s): A41.9 - SEPSIS, UNSPECIFIED ORGANISM Qualifiers: Sepsis type: sepsis due to unspecified organism Sepsis acute organ dysfunction status: unspecified Qualified Code(s): A41.9 - Sepsis, unspecified organism (7) History of COPD Code(s): Z87.09 - PERSONAL HISTORY OF OTHER DISEASES OF THE RESPIRATORY SYSTEM Assessment/Plan IMP HYPOTENSION improved ,COUGH,CONGESTION improving LIKELY PNEUMONIA ACUTE RENAL FAILURE improved ALTERED MENTAL STATUS ELEVATED LACTATE LEVEL improved ANEMIA PLAN IV ABX INHALED BRONCHODILATORS IVF MONITOR LYTES,RENAL FUNCTION O2 NEEDED DR ROACH Problem List - Problems (1) Lactic acid blood increased Code(s): R79.89 - OTHER SPECIFIED ABNORMAL FINDINGS OF BLOOD CHEMISTRY (2) DALTON (acute kidney injury) Code(s): N17.9 - ACUTE KIDNEY FAILURE, UNSPECIFIED (3) Altered mental status Code(s): R41.82 - ALTERED MENTAL STATUS, UNSPECIFIED (4) Hypotension Code(s): I95.9 - HYPOTENSION, UNSPECIFIED Qualifiers: Hypotension type: unspecified hypotension type Qualified Code(s): I95.9 - Hypotension, unspecified (5) Pneumonia Code(s): J18.9 - PNEUMONIA, UNSPECIFIED ORGANISM Qualifiers: Pneumonia type: due to unspecified organism Laterality: right Lung location: lower lobe of lung Qualified Code(s): J18.9 - Pneumonia, unspecified organism (6) Sepsis Code(s): A41.9 - SEPSIS, UNSPECIFIED ORGANISM Qualifiers: Sepsis type: sepsis due to unspecified organism Sepsis acute organ dysfunction status: unspecified Qualified Code(s): A41.9 - Sepsis, unspecified organism (7) History of COPD Code(s): Z87.09 - PERSONAL HISTORY OF OTHER DISEASES OF THE RESPIRATORY SYSTEM
--- NOTE | 2019-07-16 12:37 | PN ---
Progress Note (short form) - Note Progress Note: RENAL Pt is awake and alert comfortable making urine c/o pain in gluteal area appetite is poor Last Vital Signs Temp Pulse Resp BP Pulse Ox 98.4 F 102 H 18 154/86 94 L 07/16/19 10:00 07/16/19 10:00 07/16/19 10:00 07/16/19 10:00 07/16/19 09:00 lungs clear cvs s1s2 rr abd soft ext no edema neuro a+o has a piper CBC, BMP 07/15/19 05:48 07/16/19 05:37 Current Medications Generic Name Dose Route Start Last Admin Trade Name Freq PRN Reason Stop Dose Admin Albuterol Sulfate 2 puff 07/15/19 02:31 Ventolin Hfa Inhaler - IH Q4H PRN SHORT OF BREATH/WHEEZING Budesonide/Formoterol Fumarate 1 puff 07/15/19 10:00 07/16/19 09:03 Symbicort 160/4.5mcg - IH 1 puff BID TITA Administration Chlorpromazine HCl 50 mg 07/15/19 23:23 07/16/19 09:02 Thorazine - PO 50 mg BID TITA Administration Docusate Sodium 100 mg 07/15/19 10:00 07/16/19 09:00 Colace - PO 100 mg BID TITA Administration Enoxaparin Sodium 40 mg 07/16/19 10:00 07/16/19 09:01 Lovenox - SQ 40 mg DAILY TITA Administration Sodium Chloride 1,000 mls @ 75 mls/hr 07/15/19 02:30 07/16/19 03:02 1/2 Normal Saline IV 75 mls/hr ASDIR TITA Administration Ceftriaxone Sodium 2 gm/ 100 mls @ 200 mls/hr 07/15/19 17:00 07/16/19 09:06 Dextrose IVPB 200 mls/hr DAILY TITA Administration Protocol Lamotrigine 25 mg 07/15/19 10:00 07/16/19 09:01 Lamictal - PO 25 mg DAILY TITA Administration [place] Carbonate 300 mg 07/15/19 10:00 07/16/19 09:00 Eskalith - PO 300 mg BID TITA Administration Multivitamins/Minerals/Vitamin C 1 tab 07/15/19 10:00 07/16/19 09:02 Tab-A-Vit - PO 1 tab DAILY TITA Administration Pantoprazole Sodium 40 mg 07/16/19 10:00 07/16/19 09:00 Protonix - PO 40 mg DAILY TITA Administration Prednisone 20 mg 07/15/19 10:00 07/16/19 09:00 Deltasone - PO 20 mg BID TITA Administration Trazodone HCl 50 mg 07/15/19 22:00 07/15/19 23:50 Desyrel - PO 50 mg HS TITA Administration Impression 1. DALTON- improved 2. DM 3. HTN 4. hypotension 5. bipolar 6. lactic acidosis 7. epilepsy Plan - can restart veronica and metformin - change fluids to saline - keep monitoring MV
[2019-07-16] MEDS: SODIUM CHLORIDE 1,000 ML IV SCH (12:53)
[2019-07-16] MEDS ORDERED: ONDANSETRON 4 MG/2 ML VIAL IVPB PRN (15:57)
--- NOTE | 2019-07-16 16:01 | PN ---
Progress Note, Physician History of Present Illness: events note d Chart revkwed Alert Awke Oriented Feels better Sitting in shane bned Compalints ofg nausea and vomiting - Current Medication List Current Medications: Active Medications Albuterol Sulfate (Ventolin Hfa Inhaler -) 2 puff IH Q4H PRN PRN Reason: SHORT OF BREATH/WHEEZING Budesonide/Formoterol Fumarate (Symbicort 160/4.5mcg -) 1 puff IH BID [facility] Last Admin: 07/16/19 09:03 Dose: 1 puff Chlorpromazine HCl (Thorazine -) 50 mg PO BID [facility] Last Admin: 07/16/19 09:02 Dose: 50 mg Docusate Sodium (Colace -) 100 mg PO BID [facility] Last Admin: 07/16/19 09:00 Dose: 100 mg Enoxaparin Sodium (Lovenox -) 40 mg SQ DAILY [facility] Last Admin: 07/16/19 09:01 Dose: 40 mg Sodium Chloride (1/2 Normal Saline) 1,000 mls @ 75 mls/hr IV ASDIR [facility] Last Admin: 07/16/19 03:02 Dose: 75 mls/hr Ceftriaxone Sodium 2 gm/ (Dextrose) 100 mls @ 200 mls/hr IVPB DAILY [facility]; Protocol Last Admin: 07/16/19 09:06 Dose: 200 mls/hr Sodium Chloride (Normal Saline -) 1,000 mls @ 42 mls/hr IV ASDIR [facility] Last Admin: 07/16/19 12:53 Dose: 42 mls/hr Lamotrigine (Lamictal -) 25 mg PO DAILY [facility] Last Admin: 07/16/19 09:01 Dose: 25 mg [place] Carbonate (Eskalith -) 300 mg PO BID [facility] Last Admin: 07/16/19 09:00 Dose: 300 mg Multivitamins/Minerals/Vitamin C (Tab-A-Vit -) 1 tab PO DAILY [facility] Last Admin: 07/16/19 09:02 Dose: 1 tab Ondansetron HCl (Zofran Injection) 4 mg IVPB Q6H PRN PRN Reason: NAUSEA AND/OR VOMITING Pantoprazole Sodium (Protonix -) 40 mg PO DAILY [facility] Last Admin: 07/16/19 09:00 Dose: 40 mg Prednisone (Deltasone -) 20 mg PO BID [facility] Last Admin: 07/16/19 09:00 Dose: 20 mg Trazodone HCl (Desyrel -) 50 mg PO HS [facility] Last Admin: 07/15/19 23:50 Dose: 50 mg - Objective Vital Signs: Vital Signs Temperature 99.3 F 07/16/19 14:20 Pulse Rate 115 H 07/16/19 14:20 Respiratory Rate 18 07/16/19 14:20 Blood Pressure 149/81 07/16/19 14:20 O2 Sat by Pulse Oximetry (%) 94 L 07/16/19 09:00 Constitutional: Yes: Well Nourished Eyes: Yes: WNL HENT: Yes: WNL Neurological: Yes: Alert, Oriented, Babinski negative ...Motor Strength: WNL Labs: CBC, BMP 07/15/19 05:48 07/16/19 05:37 INR, PTT INR 1.09 (0.83-1.09) 07/15/19 00:35 Problem List - Problems (1) Altered mental status Assessment/Plan: 1. lamotrigine level Sinement bid PT DVT prophylaxis Code(s): R41.82 - ALTERED MENTAL STATUS, UNSPECIFIED
[2019-07-16 22:22] VITALS: BMI 25.4
[2019-07-16] MEDS: traZODone HCL 50 MG TABLET (FP) PO SCH (22:39)
[2019-07-16] MEDS: CARBIDOPA/LEVODOPA 10/100 TABLET (FP) PO SCH (22:39)
[2019-07-17 06:26] LABS: HEMATOCRIT 35.7 % (35.4-49); HEMOGLOBIN 12.1 GM/dL (11.7-16.9); MCH 32.4 pg (25.7-33.7); MCHC 33.8 g/dl (32.0-35.9); MEAN PLT VOLUME 7.7 fl (7.5-11.1); PLATELET COUNT 451 K/MM3 (134-434); RBC 3.72 M/mm3 (4.00-5.60); RDW 13.9 % (11.9-15.9); WHITE BLOOD COUNT 14.6 K/mm3 (4.0-10.0)
[2019-07-17 06:50] LABS: BLOOD UREA NITROGEN 21.9 mg/dL (7-18); CALCIUM 9.4 mg/dL (8.5-10.1); MAGNESIUM 1.9 mg/dL (1.8-2.4); POTASSIUM 5.2 mmol/L (3.5-5.1)
[2019-07-17] MEDS ORDERED: PT OWN MED DRAWER 7, Y5N ONE ×2 (10:01→21:46)
[2019-07-17] MEDS ORDERED: DEXTROSE 5%-WATER 100 ML IVPB ONE (10:01)
[2019-07-17] MEDS: MULTIVITAMINS (DAILY MVI) TABLET (FP) PO SCH (10:02)
[2019-07-17] MEDS: DOCUSATE SODIUM 100 MG CAPSULE (FP) PO SCH ×2 (10:02→21:57)
[2019-07-17] MEDS: predniSONE 20 MG TABLET (UD) PO SCH ×2 (10:03→21:57)
[2019-07-17] MEDS: PANTOPRAZOLE 40 MG TABLET (FP) PO SCH (10:03)
[2019-07-17] MEDS: CARBIDOPA/LEVODOPA 10/100 TABLET (FP) PO SCH ×2 (10:03→21:58)
[2019-07-17] MEDS: CEFTRIAXONE 2 GM in DEXTROSE 5%-WATER 100 ML IVPB SCH (10:03)
[2019-07-17] MEDS: lamoTRIgine 25 MG TABLET PO SCH (10:03)
[2019-07-17] MEDS: chlorproMAZINE HCL 25 MG TABLET PO SCH ×2 (10:05→21:58)
[2019-07-17] MEDS: ENOXAPARIN NA (PORCINE) 30 MG/0.3 ML DISP.SYRIN SQ SCH (10:06)
[2019-07-17] MEDS: BUDESONIDE/FORMETEROL FUMARATE 160/4.5 mcg INHALER IH SCH ×2 (10:06→21:59)
[2019-07-17] MEDS: LITHIUM CARBONATE 300 MG CAPSULE (FP) PO SCH ×2 (10:07→21:59)
--- NOTE | 2019-07-17 10:18 | PN ---
Progress Note, Physician Chief Complaint: AWAKE ALERT X 2 DENIES CHEST PAIN HAD NAUSEA AND VOMITING OVER NIGHT NO FEVER ATE BREAKFAST THIS MORNING - Current Medication List Current Medications: Active Medications Albuterol Sulfate (Ventolin Hfa Inhaler -) 2 puff IH Q4H PRN PRN Reason: SHORT OF BREATH/WHEEZING Budesonide/Formoterol Fumarate (Symbicort 160/4.5mcg -) 1 puff IH BID [facility] Last Admin: 07/17/19 10:06 Dose: 1 puff Carbidopa/Levodopa (Sinemet 10/100 -) 1 each PO BID [facility] Last Admin: 07/17/19 10:03 Dose: 1 each Chlorpromazine HCl (Thorazine -) 50 mg PO BID [facility] Last Admin: 07/17/19 10:05 Dose: 50 mg Docusate Sodium (Colace -) 100 mg PO BID [facility] Last Admin: 07/17/19 10:02 Dose: 100 mg Enoxaparin Sodium (Lovenox -) 40 mg SQ DAILY [facility] Last Admin: 07/17/19 10:06 Dose: 40 mg Ceftriaxone Sodium 2 gm/ (Dextrose) 100 mls @ 200 mls/hr IVPB DAILY [facility]; Protocol Last Admin: 07/17/19 10:03 Dose: 200 mls/hr Sodium Chloride (Normal Saline -) 1,000 mls @ 42 mls/hr IV ASDIR [facility] Last Admin: 07/16/19 12:53 Dose: 42 mls/hr Lamotrigine (Lamictal -) 25 mg PO DAILY [facility] Last Admin: 07/17/19 10:03 Dose: 25 mg [place] Carbonate (Eskalith -) 300 mg PO BID [facility] Last Admin: 07/17/19 10:07 Dose: 300 mg Multivitamins/Minerals/Vitamin C (Tab-A-Vit -) 1 tab PO DAILY [facility] Last Admin: 07/17/19 10:02 Dose: 1 tab Ondansetron HCl (Zofran Injection) 4 mg IVPB Q6H PRN PRN Reason: NAUSEA AND/OR VOMITING Last Admin: 07/16/19 16:03 Dose: 4 mg Pantoprazole Sodium (Protonix -) 40 mg PO DAILY [facility] Last Admin: 07/17/19 10:03 Dose: 40 mg Prednisone (Deltasone -) 20 mg PO BID [facility] Last Admin: 07/17/19 10:03 Dose: 20 mg Trazodone HCl (Desyrel -) 50 mg PO HS [facility] Last Admin: 07/16/19 22:39 Dose: 50 mg - Objective Vital Signs: Vital Signs Temperature 97.8 F 07/17/19 05:00 Pulse Rate 87 07/17/19 05:00 Respiratory Rate 16 07/17/19 05:00 Blood Pressure 125/80 07/17/19 05:00 O2 Sat by Pulse Oximetry (%) 94 L 07/16/19 21:00 Constitutional: Yes: Mild Distress HENT: Yes: WNL Cardiovascular: Yes: WNL Respiratory: Yes: Diminished Gastrointestinal: Yes: Soft Genitourinary: Yes: Carla Present Musculoskeletal: Yes: Muscle Weakness Edema: Yes Neurological: Yes: Pre-Existing Deficit Labs: CBC, BMP 07/17/19 05:30 07/17/19 05:30 INR, PTT INR 1.09 (0.83-1.09) 07/15/19 00:35 Problem List - Problems (1) DALTON (acute kidney injury) Code(s): N17.9 - ACUTE KIDNEY FAILURE, UNSPECIFIED (2) Altered mental status Code(s): R41.82 - ALTERED MENTAL STATUS, UNSPECIFIED (3) Hypotension Code(s): I95.9 - HYPOTENSION, UNSPECIFIED Qualifiers: Hypotension type: unspecified hypotension type Qualified Code(s): I95.9 - Hypotension, unspecified (4) Lactic acid blood increased Code(s): R79.89 - OTHER SPECIFIED ABNORMAL FINDINGS OF BLOOD CHEMISTRY (5) Pneumonia Code(s): J18.9 - PNEUMONIA, UNSPECIFIED ORGANISM Qualifiers: Pneumonia type: due to unspecified organism Laterality: right Lung location: lower lobe of lung Qualified Code(s): J18.9 - Pneumonia, unspecified organism (6) Sepsis Code(s): A41.9 - SEPSIS, UNSPECIFIED ORGANISM Qualifiers: Sepsis type: sepsis due to unspecified organism Sepsis acute organ dysfunction status: unspecified Qualified Code(s): A41.9 - Sepsis, unspecified organism (7) Weakness Code(s): R53.1 - WEAKNESS (8) History of COPD Code(s): Z87.09 - PERSONAL HISTORY OF OTHER DISEASES OF THE RESPIRATORY SYSTEM Assessment/Plan IV ABX PER ID CHECK CULTURES PT EVAL LANE FOR NOW CAN DC WHEN SYMPTOMS IMPROVE COPD ON NEBS CHECK ABD XRAY R/O ILEUS/SBO ZOFRAN PRN PREDNISONE TAPER
--- NOTE | 2019-07-17 11:38 | PN ---
Progress Note, Physician History of Present Illness: pulmonary alert,comfortable,sob improving - Current Medication List Current Medications: Active Medications Albuterol Sulfate (Ventolin Hfa Inhaler -) 2 puff IH Q4H PRN PRN Reason: SHORT OF BREATH/WHEEZING Budesonide/Formoterol Fumarate (Symbicort 160/4.5mcg -) 1 puff IH BID [facility] Last Admin: 07/17/19 10:06 Dose: 1 puff Carbidopa/Levodopa (Sinemet 10/100 -) 1 each PO BID [facility] Last Admin: 07/17/19 10:03 Dose: 1 each Chlorpromazine HCl (Thorazine -) 50 mg PO BID [facility] Last Admin: 07/17/19 10:05 Dose: 50 mg Docusate Sodium (Colace -) 100 mg PO BID [facility] Last Admin: 07/17/19 10:02 Dose: 100 mg Enoxaparin Sodium (Lovenox -) 40 mg SQ DAILY [facility] Last Admin: 07/17/19 10:06 Dose: 40 mg Ceftriaxone Sodium 2 gm/ (Dextrose) 100 mls @ 200 mls/hr IVPB DAILY [facility]; Protocol Last Admin: 07/17/19 10:03 Dose: 200 mls/hr Sodium Chloride (Normal Saline -) 1,000 mls @ 42 mls/hr IV ASDIR [facility] Last Admin: 07/16/19 12:53 Dose: 42 mls/hr Lamotrigine (Lamictal -) 25 mg PO DAILY [facility] Last Admin: 07/17/19 10:03 Dose: 25 mg [place] Carbonate (Eskalith -) 300 mg PO BID [facility] Last Admin: 07/17/19 10:07 Dose: 300 mg Multivitamins/Minerals/Vitamin C (Tab-A-Vit -) 1 tab PO DAILY [facility] Last Admin: 07/17/19 10:02 Dose: 1 tab Ondansetron HCl (Zofran Injection) 4 mg IVPB Q6H PRN PRN Reason: NAUSEA AND/OR VOMITING Last Admin: 07/16/19 16:03 Dose: 4 mg Pantoprazole Sodium (Protonix -) 40 mg PO DAILY [facility] Last Admin: 07/17/19 10:03 Dose: 40 mg Prednisone (Deltasone -) 20 mg PO BID [facility] Last Admin: 07/17/19 10:03 Dose: 20 mg Trazodone HCl (Desyrel -) 50 mg PO HS [facility] Last Admin: 07/16/19 22:39 Dose: 50 mg - Objective Vital Signs: Vital Signs Temperature 98.6 F 07/17/19 09:00 Pulse Rate 107 H 07/17/19 09:00 Respiratory Rate 20 07/17/19 09:00 Blood Pressure 137/74 07/17/19 09:00 O2 Sat by Pulse Oximetry (%) 98 07/17/19 09:00 Constitutional: Yes: Well Nourished, Calm Eyes: Yes: WNL HENT: Yes: WNL Neck: Yes: WNL Cardiovascular: Yes: Regular Rate and Rhythm, S1, S2 Respiratory: Yes: Rhonchi (few wheezes) Gastrointestinal: Yes: Normal Bowel Sounds, Soft Extremities: Yes: WNL Edema: No Labs: CBC, BMP 07/17/19 05:30 07/17/19 05:30 INR, PTT INR 1.09 (0.83-1.09) 07/15/19 00:35 Problem List - Problems (1) Lactic acid blood increased Code(s): R79.89 - OTHER SPECIFIED ABNORMAL FINDINGS OF BLOOD CHEMISTRY (2) DALTON (acute kidney injury) Code(s): N17.9 - ACUTE KIDNEY FAILURE, UNSPECIFIED (3) Altered mental status Code(s): R41.82 - ALTERED MENTAL STATUS, UNSPECIFIED (4) Hypotension Code(s): I95.9 - HYPOTENSION, UNSPECIFIED Qualifiers: Hypotension type: unspecified hypotension type Qualified Code(s): I95.9 - Hypotension, unspecified (5) Pneumonia Code(s): J18.9 - PNEUMONIA, UNSPECIFIED ORGANISM Qualifiers: Pneumonia type: due to unspecified organism Laterality: right Lung location: lower lobe of lung Qualified Code(s): J18.9 - Pneumonia, unspecified organism (6) Sepsis Code(s): A41.9 - SEPSIS, UNSPECIFIED ORGANISM Qualifiers: Sepsis type: sepsis due to unspecified organism Sepsis acute organ dysfunction status: unspecified Qualified Code(s): A41.9 - Sepsis, unspecified organism (7) History of COPD Code(s): Z87.09 - PERSONAL HISTORY OF OTHER DISEASES OF THE RESPIRATORY SYSTEM Assessment/Plan IMP HYPOTENSION improved ,COUGH,CONGESTION improving LIKELY PNEUMONIA ACUTE RENAL FAILURE improved ALTERED MENTAL STATUS improved ELEVATED LACTATE LEVEL improved ANEMIA PLAN IV ABX INHALED BRONCHODILATORS IVF MONITOR LYTES,RENAL FUNCTION O2 NEEDED DR ROACH Problem List - Problems (1) Lactic acid blood increased Code(s): R79.89 - OTHER SPECIFIED ABNORMAL FINDINGS OF BLOOD CHEMISTRY (2) DALTON (acute kidney injury) Code(s): N17.9 - ACUTE KIDNEY FAILURE, UNSPECIFIED (3) Altered mental status Code(s): R41.82 - ALTERED MENTAL STATUS, UNSPECIFIED (4) Hypotension Code(s): I95.9 - HYPOTENSION, UNSPECIFIED Qualifiers: Hypotension type: unspecified hypotension type Qualified Code(s): I95.9 - Hypotension, unspecified (5) Pneumonia Code(s): J18.9 - PNEUMONIA, UNSPECIFIED ORGANISM Qualifiers: Pneumonia type: due to unspecified organism Laterality: right Lung location: lower lobe of lung Qualified Code(s): J18.9 - Pneumonia, unspecified organism (6) Sepsis Code(s): A41.9 - SEPSIS, UNSPECIFIED ORGANISM Qualifiers: Sepsis type: sepsis due to unspecified organism Sepsis acute organ dysfunction status: unspecified Qualified Code(s): A41.9 - Sepsis, unspecified organism (7) History of COPD Code(s): Z87.09 - PERSONAL HISTORY OF OTHER DISEASES OF THE RESPIRATORY SYSTEM
--- NOTE | 2019-07-17 15:55 | PN ---
Progress Note (short form) - Note Progress Note: RENAL Pt is awake and alert comfortable making urine Last Vital Signs Temp Pulse Resp BP Pulse Ox 98.6 F 115 H 20 142/42 L 98 07/17/19 14:00 07/17/19 14:00 07/17/19 14:00 07/17/19 14:00 07/17/19 09:00 lungs clear cvs s1s2 rr abd soft ext no edema neuro a+o has a piper CBC, BMP 07/17/19 05:30 07/17/19 05:30 Current Medications Generic Name Dose Route Start Last Admin Trade Name Freq PRN Reason Stop Dose Admin Albuterol Sulfate 2 puff 07/15/19 02:31 Ventolin Hfa Inhaler - IH Q4H PRN SHORT OF BREATH/WHEEZING Budesonide/Formoterol Fumarate 1 puff 07/15/19 10:00 07/17/19 10:06 Symbicort 160/4.5mcg - IH 1 puff BID TITA Administration Carbidopa/Levodopa 1 each 07/16/19 22:00 07/17/19 10:03 Sinemet 10/100 - PO 1 each BID [facility] Administration Chlorpromazine HCl 50 mg 07/15/19 23:23 07/17/19 10:05 Thorazine - PO 50 mg BID [facility] Administration Docusate Sodium 100 mg 07/15/19 10:00 07/17/19 10:02 Colace - PO 100 mg BID [facility]ITA Administration Enoxaparin Sodium 40 mg 07/16/19 10:00 07/17/19 10:06 Lovenox - SQ 40 mg DAILY [facility] Administration Ceftriaxone Sodium 2 gm/ 100 mls @ 200 mls/hr 07/15/19 17:00 07/17/19 10:03 Dextrose IVPB 200 mls/hr DAILY [facility] Administration Protocol Sodium Chloride 1,000 mls @ 42 mls/hr 07/16/19 12:45 07/16/19 12:53 Normal Saline - IV 42 mls/hr ASDIR [facility] Administration Lamotrigine 25 mg 07/15/19 10:00 07/17/19 10:03 Lamictal - PO 25 mg DAILY [facility]ITA Administration [place] Carbonate 300 mg 07/15/19 10:00 07/17/19 10:07 Eskalith - PO 300 mg BID TITA Administration Multivitamins/Minerals/Vitamin C 1 tab 07/15/19 10:00 07/17/19 10:02 Tab-A-Vit - PO 1 tab DAILY [facility] Administration Ondansetron HCl 4 mg 07/16/19 15:57 07/16/19 16:03 Zofran Injection IVPB 4 mg Q6H PRN Administration NAUSEA AND/OR VOMITING Pantoprazole Sodium 40 mg 07/16/19 10:00 07/17/19 10:03 Protonix - PO 40 mg DAILY [facility] Administration Prednisone 20 mg 07/15/19 10:00 07/17/19 10:03 Deltasone - PO 20 mg BID TITA Administration Trazodone HCl 50 mg 07/15/19 22:00 07/16/19 22:39 Desyrel - PO 50 mg HS TITA Administration Impression 1. DALTON- improved 2. DM 3. HTN 4. hypotension 5. bipolar 6. lactic acidosis 7. epilepsy 8. no DI despite lithium use Plan - can restart metformin. - now has hyperkalemia so hold veronica - continue saline - keep monitoring MV
[2019-07-17] MEDS: traZODone HCL 50 MG TABLET (FP) PO SCH (21:57)
[2019-07-17] MEDS: SODIUM CHLORIDE 1,000 ML IV SCH (21:57)
[2019-07-17] MEDS ORDERED: ACETAMINOPHEN 325 MG TABLET (FP) PO PRN (22:07)
[2019-07-18 07:51] LABS: HEMATOCRIT 34.3 % (35.4-49); HEMOGLOBIN 11.7 GM/dL (11.7-16.9); MCH 32.4 pg (25.7-33.7); MEAN CELL VOLUME 95.4 fl (80-96); PLATELET COUNT 424 K/MM3 (134-434); RDW 13.8 % (11.9-15.9); WHITE BLOOD COUNT 11.3 K/mm3 (4.0-10.0)
[2019-07-18 08:01] LABS: BLOOD UREA NITROGEN 20.2 mg/dL (7-18); CALCIUM 8.9 mg/dL (8.5-10.1); CREATININE 0.8 mg/dL (0.55-1.3); POTASSIUM 5.2 mmol/L (3.5-5.1)
--- NOTE | 2019-07-18 08:34 | DS ---
Physical Examination Vital Signs: Vital Signs Temperature 98.6 F 07/18/19 06:00 Pulse Rate 99 H 07/18/19 06:00 Respiratory Rate 18 07/18/19 06:00 Blood Pressure 128/64 07/18/19 06:00 O2 Sat by Pulse Oximetry (%) 97 07/17/19 20:57 Findings/Remarks: AWAKE ALERT DC LANE Constitutional: Yes: Mild Distress Cardiovascular: Yes: WNL Respiratory: Yes: Diminished Gastrointestinal: Yes: Soft Renal/: Yes: Other (DC LANE) Musculoskeletal: Yes: Muscle Weakness Edema: No Neurological: Yes: Confusion ...Motor Strength: LLE, RLE Labs: CBC, BMP 07/18/19 06:55 07/18/19 06:55 Discharge Summary Problems reviewed: Yes Reason For Visit: SEPSIS, PNEUMONIA Current Active Problems DALTON (acute kidney injury) (Acute) Altered mental status (Acute) Hypotension (Acute) Lactic acid blood increased (Acute) Pneumonia (Acute) Sepsis (Acute) Weakness (Acute) Procedures: Principal: CT SCAN/LABS AND CULTURES Hospital Course: ADMITTED FOR URINARY RETENTION AND UTI TOXIC METABOLIC ENCEPHALOPATHY TREATED IV ABX AND CULTRES NEGATIVE X 3 DAYS, WILL DC BACK TO [facility] AFTER PATIENT VOIDS URINE. Condition: Stable - Instructions Diet, Activity, Other Instructions: SOFT LOW SODIUM NEEDS PT AND OUTPATIENT NEUROLOGY W/UP MONITOR LABS Disposition: CARE HOME FACILITY - Home Medications Comprehensive Discharge Medication List: Ambulatory Orders Acetaminophen [Mapap] 2 tab PO BID PRN 07/15/19 Albuterol 0.083% Nebulizer [place] [Ventolin 0.083%] 1 neb NEB QID PRN 07/15/19 Aripiprazole [Abilify Maintena] 400 mg IM Q30D 07/15/19 Aspirin 81 mg PO DAILY 07/15/19 Benztropine Mesylate 1 mg PO DAILY 07/15/19 Carbidopa/Levodopa [Carbidopa-Levodopa 10-100 Tab] 1 each PO TID 07/15/19 Divalproex *ER* [Depakote *ER* -] 1,500 mg PO HS 07/15/19 Lamotrigine 100 mg PO DAILY 07/15/19 Lisinopril 5 mg PO DAILY 07/15/19 Metformin HCl [Glucophage] 1,000 mg PO BID 07/15/19 Quetiapine Fumarate [Seroquel -] 50 mg PO ASDIR 07/15/19 Quetiapine Fumarate [Seroquel -] 200 mg PO HS 07/15/19 Umeclidinium [place] [Incruse Ellipta] 62.5 mcg IH DAILY 07/15/19 Prescription Drug Monitoring Program (I-STOP) results: I-STOP not reviewed
[2019-07-18] MEDS ORDERED: SODIUM ZIRCONIUM CYCLOSILICATE (LOKELMA) 5 GM PACKET PO SCH (10:00)
[2019-07-18 10:25] LABS: MAGNESIUM 1.8 mg/dL (1.8-2.4)
[2019-07-18] MEDS ORDERED: DEXTROSE 5%-WATER 100 ML IVPB ONE (11:37)
[2019-07-18] MEDS: CEFTRIAXONE 2 GM in DEXTROSE 5%-WATER 100 ML IVPB SCH (11:40)
[2019-07-18] MEDS: predniSONE 20 MG TABLET (UD) PO SCH (11:41)
[2019-07-18] MEDS: DOCUSATE SODIUM 100 MG CAPSULE (FP) PO SCH (11:41)
[2019-07-18] MEDS: PANTOPRAZOLE 40 MG TABLET (FP) PO SCH (11:41)
[2019-07-18] MEDS: MULTIVITAMINS (DAILY MVI) TABLET (FP) PO SCH (11:41)
[2019-07-18] MEDS: lamoTRIgine 25 MG TABLET PO SCH (11:41)
[2019-07-18] MEDS: LITHIUM CARBONATE 300 MG CAPSULE (FP) PO SCH (11:43)
[2019-07-18] MEDS: CARBIDOPA/LEVODOPA 10/100 TABLET (FP) PO SCH (11:44)
[2019-07-18] MEDS: chlorproMAZINE HCL 25 MG TABLET PO SCH (11:45)
[2019-07-18] MEDS: BUDESONIDE/FORMETEROL FUMARATE 160/4.5 mcg INHALER IH SCH (11:46)
[2019-07-18] MEDS ORDERED: PT OWN MED DRAWER 7, Y5N ONE (11:57)
[2019-07-18] MEDS: ENOXAPARIN NA (PORCINE) 30 MG/0.3 ML DISP.SYRIN SQ SCH (12:00)
--- NOTE | 2019-07-18 15:01 | CON.GU ---
Consult Consult Specialty:: urology Referred by:: Iwona Reason for Consultation:: urinary retention - History of Present Illness Chief Complaint: urinary retention History of Present Illness: Patient is a 74 yo male with history of difficulty empting his bladder. Patient had a piper catheter removed. The patient subsequently was unable to void. Dr. Bustillo had started the patient on flomax 0.4 mg daily. Patient now with bladder volume of greater than 600cc. Piper to be placed. - History Source History Provided By: Patient, Medical Record - Past Medical History Cardio/Vascular: Yes: HTN Psych: Yes: Bipolar Endocrine: Yes: Diabetes Mellitus - Alcohol/Substance Use Hx Alcohol Use: No - Smoking History Smoking history: Former smoker Have you smoked in the past 12 months: No Aproximately how many cigarettes per day: 10 Home Medications - Allergies Allergies/Adverse Reactions: Allergies Allergy/AdvReac Type Severity Reaction Status Date / Time fluphenazine enanthate Allergy Verified 07/14/19 23:58 [From Prolixin] fluphenazine HCl Allergy Verified 07/14/19 23:58 [From Prolixin] haloperidol [From Haldol] Allergy Verified 07/14/19 23:58 haloperidol lactate Allergy Verified 07/14/19 23:58 [From Haldol] - Home Medications Home Medications: Ambulatory Orders Acetaminophen [Mapap] 2 tab PO BID PRN 07/15/19 Albuterol 0.083% Nebulizer [place] [Ventolin 0.083%] 1 neb NEB QID PRN 07/15/19 Aripiprazole [Abilify Maintena] 400 mg IM Q30D 07/15/19 Aspirin 81 mg PO DAILY 07/15/19 Benztropine Mesylate 1 mg PO DAILY 07/15/19 Carbidopa/Levodopa [Carbidopa-Levodopa 10-100 Tab] 1 each PO TID 07/15/19 Divalproex *ER* [Depakote *ER* -] 1,500 mg PO HS 07/15/19 Lamotrigine 100 mg PO DAILY 07/15/19 Lisinopril 5 mg PO DAILY 07/15/19 Metformin HCl [Glucophage] 1,000 mg PO BID 07/15/19 Quetiapine Fumarate [Seroquel -] 50 mg PO ASDIR 07/15/19 Quetiapine Fumarate [Seroquel -] 200 mg PO HS 07/15/19 Umeclidinium [place] [Incruse Ellipta] 62.5 mcg IH DAILY 07/15/19 Acetaminophen [Tylenol .Regular Strength -] 650 mg PO Q6H PRN tablet 07/18/19 Amoxicillin/Potassium Clav [Augmentin 500-125 Tablet] 1 each PO BID #10 tablet 07/18/19 Carbidopa/Levodopa 10 [Sinemet 10/100 -] 1 each PO BID tablet 07/18/19 Enoxaparin [Lovenox -] 40 mg SQ DAILY disp.syrin 07/18/19 Multivitamins [Multivit (RH Formulary)] 1 tab PO DAILY tab 07/18/19 Pantoprazole Sodium [Protonix -] 40 mg PO DAILY tablet.ec 07/18/19 Tamsulosin HCl 0.4 mg PO DAILY #30 capsule 07/18/19 predniSONE [Deltasone -] See Taper PO BID tablet 07/18/19 Physical Exam- Vital Signs: Vital Signs Temperature 98.8 F 07/18/19 09:19 Pulse Rate 105 H 07/18/19 09:19 Respiratory Rate 18 07/18/19 09:19 Blood Pressure 131/72 07/18/19 09:19 O2 Sat by Pulse Oximetry (%) 98 07/18/19 09:00 Constitutional: Yes: Well Nourished, No Distress, Calm Eyes: Yes: WNL, Conjunctiva Clear HENT: Yes: Atraumatic, Normocephalic Neck: Yes: Supple, Trachea Midline Cardiovascular: Yes: Regular Rate and Rhythm Respiratory: Yes: Regular Gastrointestinal: Yes: WNL, Normal Bowel Sounds, Soft Renal/: Yes: WNL Kidneys: Yes: WNL Pelvis: Yes: Bladder Palpable Testicles: Yes: WNL Scrotum: Yes: WNL Penis: Yes: WNL Prostate Exam: Yes: Asymmetrical, Swollen Labs: CBC, BMP 07/18/19 06:55 07/18/19 06:55 Assessment/Plan impression bph urinary retention plan continue flomax trial of voiding at [facility] will follow up if unable to void
[2019-07-18] MEDS ORDERED: MAGNESIUM OXIDE 400 MG TABLET (FP) PO ONE (15:09)
--- NOTE | 2019-07-18 15:09 | PN ---
Progress Note, Physician History of Present Illness: Pt seen and examined at bedside. He is awake and alert. He denies shortness of breath. - Current Medication List Current Medications: Active Medications Acetaminophen (Tylenol -) 650 mg PO Q6H PRN PRN Reason: PAIN LEVEL 1-5 Last Admin: 07/17/19 22:44 Dose: 650 mg Albuterol Sulfate (Ventolin Hfa Inhaler -) 2 puff IH Q4H PRN PRN Reason: SHORT OF BREATH/WHEEZING Budesonide/Formoterol Fumarate (Symbicort 160/4.5mcg -) 1 puff IH BID [facility] Last Admin: 07/18/19 11:46 Dose: 1 puff Carbidopa/Levodopa (Sinemet 10/100 -) 1 each PO BID [facility] Last Admin: 07/18/19 11:44 Dose: 1 each Chlorpromazine HCl (Thorazine -) 50 mg PO BID [facility] Last Admin: 07/18/19 11:45 Dose: 50 mg Docusate Sodium (Colace -) 100 mg PO BID [facility] Last Admin: 07/18/19 11:41 Dose: 100 mg Enoxaparin Sodium (Lovenox -) 40 mg SQ DAILY [facility] Last Admin: 07/18/19 12:00 Dose: 40 mg Ceftriaxone Sodium 2 gm/ (Dextrose) 100 mls @ 200 mls/hr IVPB DAILY [facility]; Protocol Last Admin: 07/18/19 11:40 Dose: 200 mls/hr Sodium Chloride (Normal Saline -) 1,000 mls @ 42 mls/hr IV ASDIR [facility] Last Admin: 07/17/19 21:57 Dose: 42 mls/hr Lamotrigine (Lamictal -) 25 mg PO DAILY [facility] Last Admin: 07/18/19 11:41 Dose: 25 mg [place] Carbonate (Eskalith -) 300 mg PO BID [facility] Last Admin: 07/18/19 11:43 Dose: 300 mg Multivitamins/Minerals/Vitamin C (Tab-A-Vit -) 1 tab PO DAILY [facility] Last Admin: 07/18/19 11:41 Dose: 1 tab Ondansetron HCl (Zofran Injection) 4 mg IVPB Q6H PRN PRN Reason: NAUSEA AND/OR VOMITING Last Admin: 07/16/19 16:03 Dose: 4 mg Pantoprazole Sodium (Protonix -) 40 mg PO DAILY [facility] Last Admin: 07/18/19 11:41 Dose: 40 mg Prednisone (Deltasone -) 20 mg PO BID [facility] Last Admin: 07/18/19 11:41 Dose: 20 mg Sodium Zirconium Cyclosilicate (Lokelma) 5 gm PO BID [facility] Stop: 07/18/19 22:01 Last Admin: 07/18/19 11:58 Dose: 5 gm Tamsulosin HCl (Flomax -) 0.4 mg PO DAILY@0830 [facility] Trazodone HCl (Desyrel -) 50 mg PO [facility] Last Admin: 07/17/19 21:57 Dose: 50 mg - Objective Vital Signs: Vital Signs Temperature 98.8 F 07/18/19 09:19 Pulse Rate 105 H 07/18/19 09:19 Respiratory Rate 18 07/18/19 09:19 Blood Pressure 131/72 07/18/19 09:19 O2 Sat by Pulse Oximetry (%) 98 07/18/19 09:00 Constitutional: Yes: Calm Eyes: Yes: Conjunctiva Clear HENT: Yes: Atraumatic Neck: Yes: Supple Cardiovascular: Yes: S1, S2 Respiratory: Yes: CTA Bilaterally Gastrointestinal: Yes: Soft Genitourinary: Yes: WNL Musculoskeletal: Yes: WNL Edema: No Neurological: Yes: Oriented Psychiatric: Yes: Oriented Labs: CBC, BMP 07/18/19 06:55 07/18/19 06:55 INR, PTT INR 1.09 (0.83-1.09) 07/15/19 00:35 Problem List - Problems (1) DALTON (acute kidney injury) Code(s): N17.9 - ACUTE KIDNEY FAILURE, UNSPECIFIED (2) Altered mental status Code(s): R41.82 - ALTERED MENTAL STATUS, UNSPECIFIED (3) Hypotension Code(s): I95.9 - HYPOTENSION, UNSPECIFIED Qualifiers: Hypotension type: unspecified hypotension type Qualified Code(s): I95.9 - Hypotension, unspecified Assessment/Plan Current Medications Generic Name Dose Route Start Last Admin Trade Name Freq PRN Reason Stop Dose Admin Acetaminophen 650 mg 07/17/19 22:07 07/17/19 22:44 Tylenol - PO 650 mg Q6H PRN Administration PAIN LEVEL 1-5 Albuterol Sulfate 2 puff 07/15/19 02:31 Ventolin Hfa Inhaler - IH Q4H PRN SHORT OF BREATH/WHEEZING Budesonide/Formoterol Fumarate 1 puff 07/15/19 10:00 07/18/19 11:46 Symbicort 160/4.5mcg - IH 1 puff BID [facility] Administration Carbidopa/Levodopa 1 each 07/16/19 22:00 07/18/19 11:44 Sinemet 10/100 - PO 1 each BID [facility] Administration Chlorpromazine HCl 50 mg 07/15/19 23:23 07/18/19 11:45 Thorazine - PO 50 mg BID [facility] Administration Docusate Sodium 100 mg 07/15/19 10:00 07/18/19 11:41 Colace - PO 100 mg BID [facility] Administration Enoxaparin Sodium 40 mg 07/16/19 10:00 07/18/19 12:00 Lovenox - SQ 40 mg DAILY [facility] Administration Ceftriaxone Sodium 2 gm/ 100 mls @ 200 mls/hr 07/15/19 17:00 07/18/19 11:40 Dextrose IVPB 200 mls/hr DAILY [facility] Administration Protocol Sodium Chloride 1,000 mls @ 42 mls/hr 07/16/19 12:45 07/17/19 21:57 Normal Saline - IV 42 mls/hr ASDIR [facility] Administration Lamotrigine 25 mg 07/15/19 10:00 07/18/19 11:41 Lamictal - PO 25 mg DAILY [facility] Administration [place] Carbonate 300 mg 07/15/19 10:00 07/18/19 11:43 Eskalith - PO 300 mg BID [facility] Administration Multivitamins/Minerals/Vitamin C 1 tab 07/15/19 10:00 07/18/19 11:41 Tab-A-Vit - PO 1 tab DAILY [facility] Administration Ondansetron HCl 4 mg 07/16/19 15:57 07/16/19 16:03 Zofran Injection IVPB 4 mg Q6H PRN Administration NAUSEA AND/OR VOMITING Pantoprazole Sodium 40 mg 07/16/19 10:00 07/18/19 11:41 Protonix - PO 40 mg DAILY [facility] Administration Prednisone 20 mg 07/15/19 10:00 07/18/19 11:41 Deltasone - PO 20 mg BID [facility] Administration Sodium Zirconium Cyclosilicate 5 gm 07/18/19 10:00 07/18/19 11:58 Lokelma PO 07/18/19 22:01 5 gm BID [facility] Administration Tamsulosin HCl 0.4 mg 07/19/19 08:30 Flomax - PO DAILY@0830 [facility] Trazodone HCl 50 mg 07/15/19 22:00 07/17/19 21:57 Desyrel - PO 50 mg HS [facility] Administration Laboratory Tests 07/18/19 06:55 Magnesium 1.8 Impression 1. DALTON 2. DM 3. HTN 4. hypotension 5. bipolar 6. lactic acidosis 7. epilepsy 8. hyperkalemia Plan - will give lokelma for elevated potassium - hold veronica for now - low potassium diet - renal function is improving
[2019-07-18] MEDS: SODIUM CHLORIDE 1,000 ML IV SCH (15:43)
[2019-07-18 17:36] VITALS: BP 137/74; PULSE 100; TEMP 98.2
[2019-07-19] MEDS ORDERED: TAMSULOSIN HCL 0.4 MG CAP PO SCH (08:30)
== END 2019-07-18 18:52 | DRG 871 ==
LOC: JER 23:04 → JERBED 07-15 01:16 → J4S 07-15 12:12
PROVIDERS: ADMIT Family Medicine; ATTEND Family Medicine
DX: A41.9 Sepsis, unspecified organism (principal); J18.1 Lobar pneumonia, unspecified organism; G93.41 Metabolic encephalopathy; N39.0 Urinary tract infection, site not specified; E87.2 Acidosis; N17.9 Acute kidney failure, unspecified; R33.9 Retention of urine, unspecified; N40.0 Benign prostatic hyperplasia without lower urinary tract symptoms; E87.5 Hyperkalemia; I95.9 Hypotension, unspecified; E11.9 Type 2 diabetes mellitus without complications; R41.82 Altered mental status, unspecified; D64.9 Anemia, unspecified; G20 Parkinson's disease; D72.829 Elevated white blood cell count, unspecified; R00.0 Tachycardia, unspecified
CPT/HCPCS: 36415; 70450-TC; 71045-TC-FY; 71250-TC; 76700-TC; 80048; 80053; 80175; 81003; 82803; 83605; 83735; 84484; 85025; 85027; 85610; 85730; 87040; 87086; 93005; 93010; 99285-25; J7030